=== PATIENT | male | born 1965 | race Caucasian/White ===

== ENCOUNTER → 2018-02-03 11:24 | Outpatient (CLI) | payer OTHER, SELFPAY ==
[2018-02-03 13:56] LABS: Basophils # 0.1 K/mm3 (0-0.2); Basophils % 0.4 % (0.1-2.0); Eosinophils # 0.1 K/mm3 (0.0-0.4); Eosinophils % 0.7 % (0.1-12.0); Hematocrit 49.2 % (42.0-52.0); Hemoglobin 16.1 g/dL (14.1-18.0); Lymphocytes # 1.6 K/mm3 (0.7-4.5); Lymphocytes % 14.3 K/mm3 (10-50); Mean Corpuscular HGB Conc 32.8 g/dL (31.8-35.4); Mean Corpuscular Hemoglobin 27.6 pg (27.0-31.2); Mean Corpuscular Volume 84.1 fl (80-94); Mean Platelet Volume 8.5 fl (7.4-10.4); Monocytes # 0.6 K/mm3 (0.1-1.0); Monocytes % 5.3 % (1.7-9.3); Neutrophils % 79.3 % (37.0-80.0); Platelet Count 337 K/mm3 (142-424); Red Blood Count 5.85 M/mm3 (4.60-6.20); Red Cell Distribution Width 14.6 % (11.5-17.5); White Blood Count 11.4 K/mm3 (4.8-10.8)
[2018-02-03 14:51] LABS: Alanine Aminotransferase 18 U/L (12-78); Albumin Level 3.6 gm/dL (3.4-5.0); Albumin/Globulin Ratio 1.1 (1.1-1.8); Alkaline Phosphatase 74 U/L (46-116); Amylase 53 U/L (25-125); Anion Gap 13.6 mEq/L (5-15); Aspartate Amino Transferase 5 U/L (15-37); Bilirubin,Total 0.8 mg/dL (0.2-1.0); Blood Urea Nitrogen 16 mg/dL (7-18); Calcium 9.6 mg/dL (8.5-10.1); Carbon Dioxide 28 mmol/L (21.0-32.0); Chloride 105 mmol/L (98-107); Chol/HDL Ratio 5.4 (1-3.5); Cholesterol 173 mg/dL (140-200); Creatinine,Serum 1.55 mg/dL (0.70-1.30); Estimated Glomerular Filt Rate 48 ml/min (>60); GFR (African American) 57 ML/MIN (>60); Globulin 3.2 gm/dl (1.3-3.2); Glucose 94 mg/dL (74-106); HDL Cholesterol 32 mg/dL (27-67); LDL Cholesterol 112 mg/dL (0-130); Lipase 101 u/L (73-393); Potassium 4.6 mmoL/L (3.5-5.1); Sodium 142 mmol/L (136-145); Total Protein,Serum 6.8 gm/dL (6.4-8.2); Triglycerides 143 mg/dL (30-200); VLDL Cholesterol 29 mg/dL (0-40)
== END ==
LOC: LAB 11:28 → LAB.CARL 11:59
PROVIDERS: PCP Internal Medicine Adolescent Medicine; Visit Provider Internal Medicine Adolescent Medicine
DX: E78.5 Hyperlipidemia, unspecified (principal); K92.1 Melena
CPT/HCPCS: 36415; 80053; 80061; 82150; 83690; 85025

== ENCOUNTER → 2020-12-14 09:13 | Outpatient (CLI) | payer OTHER, SELFPAY ==
--- NOTE | 2020-12-14 09:22 | XR_ITS ---
PROCEDURE: XR ANKLE WT BEARING LT MIN 3V CLINICAL INDICATION: pain COMPARISON: CR ANKR3 ANKLE-RT-3 VIEWS from 07/18/2015 CR ANKL3 ANKLE-LT-3 VIEWS from 07/18/2015 FINDINGS: Severe degenerative changes of the ankle joint, worse in the tibiotalar joint. There is evidence of varus tilt of the talus with evidence of flattening of the talar dome, subchondral sclerosis and extensive heterotopic ossification. There is subluxation of the tibiotalar joint. Degenerative changes of the distal tibial fibular joint noted. Soft tissue swelling adjacent to the ankle joint. Bone density is normal. Achilles tendon enthesopathy and calcaneal spur are noted. IMPRESSION: Severe degenerative changes of the ankle joint, worse in the tibiotalar joint. No acute fractures or dislocations. Dictated by: Pascale Mendoza 12/14/2020 12:48 Pascale Mendoza in [facility] 12/14/2020 12:48
--- NOTE | 2020-12-14 09:22 | XR_ITS ---
PROCEDURE: XR FOOT WT BEARING LT 3V CLINICAL INDICATION: pain COMPARISON: No exams were available for comparison FINDINGS: Mild osteopenia. No acute fractures or dislocations. Subluxation with degenerative changes of the tibiotalar joint are better visualized on the x-ray of the ankle joint. Extensive heterotopic ossification noted adjacent to the tibiotalar joint. Calcaneal spur is noted. No other soft tissue abnormality is noted. IMPRESSION: Calcaneal spur. Dictated by: Pascale Mendoza 12/14/2020 10:59 Pascale Mendoza in [facility] 12/14/2020 10:59
--- NOTE | 2020-12-14 09:22 | XR_ITS ---
PROCEDURE: XR FOOT WT BEARING RT 3V CLINICAL INDICATION: pain COMPARISON: No exams were available for comparison FINDINGS: Severe degenerative changes of the tibiotalar joint with sclerosis and flattening of the talar dome is noted, better characterized on the ankle radiograph of the same date. There is varus deformity of the 2nd, 3rd and 4th MTP joints. Degenerative changes of the 1st MTP joint is noted. No acute fractures or dislocations. No significant erosive changes. Mild generalized osteopenia is noted. IMPRESSION: Degenerative changes as described above. Dictated by: Pascale Mendoza 12/14/2020 12:46 Pascale Mendoza in [facility] 12/14/2020 12:46
--- NOTE | 2020-12-14 09:22 | XR_ITS ---
PROCEDURE: XR ANKLE WT BEARING RT MIN 3V CLINICAL INDICATION: pain COMPARISON: CR ANKR3 ANKLE-RT-3 VIEWS from 07/18/2015 CR ANKL3 ANKLE-LT-3 VIEWS from 07/18/2015 FINDINGS: Severe degenerative changes of the right ankle joint with the disruption of the ankle mortise, varus tilt, subchondral cystic changes and heterotopic ossification, worse compared to the prior study. Subluxation of the tibiotalar joint is noted. Widening of the lateral aspect of the tibiotalar joint is again noted, no interval change. Multiple osteophytes are noted in the tibiotalar joint. No acute fractures. No significant soft tissue abnormality is noted. IMPRESSION: Severe degenerative changes of the right ankle joint, worse compared to the prior study of July 18, 2015. No acute fractures. Dictated by: Pascale Mendoza 12/14/2020 10:57 Pascale Mendoza in [facility] 12/14/2020 10:57
== END ==
PROVIDERS: PCP Nurse Practitioner Family; Visit Provider Podiatrist
DX: M25.572 Pain in left ankle and joints of left foot (principal); M79.672 Pain in left foot; M25.571 Pain in right ankle and joints of right foot; M79.671 Pain in right foot
CPT/HCPCS: 73610; 73630

== ENCOUNTER → 2021-02-16 12:10 | Outpatient (CLI) | payer OTHER, SELFPAY ==
[2021-02-16 12:31] LABS: Basophils % 0.5 % (0.1-2.0); Eosinophils # 0.1 K/mm3 (0.0-0.4); Eosinophils % 1.2 % (0.1-12.0); Hematocrit 48.4 % (42.0-52.0); Hemoglobin 15.9 g/dL (14.1-18.0); Lymphocytes # 1.3 K/mm3 (0.7-4.5); Lymphocytes % 18.1 % (10-50); Mean Corpuscular HGB Conc 32.8 g/dL (31.8-35.4); Mean Corpuscular Hemoglobin 29.4 pg (27.0-31.2); Mean Corpuscular Volume 89.7 fl (80-94); Mean Platelet Volume 8.6 fl (7.4-10.4); Monocytes # 0.4 K/mm3 (0.1-1.0); Monocytes % 5.3 % (1.7-9.3); Neutrophils # 5.1 K/mm3 (1.8-7.8); Neutrophils % 74.8 % (37.0-80.0); Platelet Count 268 K/mm3 (142-424); Red Cell Distribution Width 14.3 % (11.5-17.5); White Blood Count 6.9 K/mm3 (4.8-10.8)
[2021-02-16 12:40] LABS: Alanine Aminotransferase 15 U/L (12-78); Albumin Level 3.9 g/dl (3.5-5.0); Albumin/Globulin Ratio 1.3 (1.1-1.8); Alkaline Phosphatase 60 U/L (38-126); Anion Gap 14.2 mEq/L (5-15); Aspartate Amino Transferase 24 U/L (17-59); Bilirubin,Total 0.8 mg/dl (0.2-1.3); Blood Urea Nitrogen 16 mg/dl (9-20); Calcium 9.6 mg/dl (8.4-10.2); Carbon Dioxide 25 mmol/L (22.0-30.0); Chloride 105 mmol/L (98-107); Estimated Glomerular Filt Rate 70 ml/min (>60); GFR (African American) 84 ML/MIN (>60); Globulin 2.9 g/dL (1.3-3.2); Glucose 105 mg/dl (74-100); Potassium 4.2 mmoL/L (3.5-5.1); Sodium 140 mmol/L (136-145); Total Protein,Serum 6.8 g/dl (6.3-8.2)
--- NOTE | 2021-02-16 12:40 | XR_ITS ---
PROCEDURE: XR DEXA AXIAL SKELETON CLINICAL HISTORY: surgical planning COMPARISON: No exams were available for comparison FINDINGS: The right hip BMD is 0.799 with a T-score of -1.0. The left hip BMD is 1.022 with a T-score of -0.1. The lumbar spine BMD is 1.234 with a T-score of 1.3. IMPRESSION: This patient is considered normal according to the World Health Organization criteria. Fracture risk is low. Based on these results a follow-up exam is recommended in 2 year. Dictated by: Patrick Madrid MD 02/16/2021 13:44 Patrick Madrid MD in [facility] 02/16/2021 13:44
[2021-02-16 12:44] LABS: Hemoglobin A1C 5.4 % (4.0-6.0)
[2021-02-16 12:45] LABS: C-Reactive Protein 14.7 mg/L (0-4)
[2021-02-16 13:03] LABS: Erythrocyte Sedimentation Rate 9 mm/hr (0-20)
--- NOTE | 2021-02-16 13:05 | MR_ITS ---
PROCEDURE INFORMATION: Exam: MR Right Lower Extremity Joint Without and With Contrast; Ankle Exam date and time: 02/16/2021 1:05 PM Age: 55 years old Clinical indication: Pain; Ankle; Right; Additional info: Pain. Entire ankle pain with swelling xyrs, no injury or trauma. Foot turns out. 30ml prohance given. 17ml lot: [id number] exp: Nov 2022 13ml lot: [id number] exp: Jul 2022 prior x-ray 12-14-20 bun: 16 cre: 1.10 gfr: 70 TECHNIQUE: Imaging protocol: MR of the Right lower extremity without and with contrast. Exam focused on the ankle. Contrast material: PROHANCE; Contrast volume: 30 ml; Contrast route: IV; COMPARISON: CR XR ANKLE WT BEARING RT MIN 3V 12/14/2020 9:25 AM FINDINGS: Bones and cartilage: Joint spaces: Severe ankle joint osteoarthrosis with cartilage denudation (most severe medially). Large ankle joint line osteophytes, with scattered foci of subchondral marrow edema and subchondral cysts. There is varus alignment of the ankle joint. A few mineralized intra-articular bodies are present within posterior and lateral portions of the ankle joint. There is severe osteoarthrosis of the middle subtalar joint with cartilage denudation and associated joint effusion, as well as subchondral marrow edema and cysts. Mild degenerative change of the posterior subtalar joint. Mineralized bodies are present within the posterior subtalar joint, possibly via communication with the ankle joint. There are scattered mild degenerative changes of the midfoot, with small foci of subchondral marrow edema. LIGAMENTS: Distal tibiofibular syndesmosis: There is thickening of the distal tibiofibular syndesmosis, including the anterior and posterior tibiofibular ligaments. Anterior talofibular ligament: Chronic tear. Posterior talofibular ligament: Unremarkable. No tear. Calcaneofibular ligament: Chronic tear. Deltoid ligament complex: Unremarkable. No tear. TENDONS: Flexor tendons of foot: There is a moderate amount of fluid within flexor hallucis longus tendon sheath compatible with tenosynovitis. Tibialis posterior tendon: There is mild tibialis posterior tendinosis and tenosynovitis, without evidence of tendon tear. Peroneal tendons: Longitudinal split tear of the peroneus brevis extending from the lateral malleolus to the peroneal tubercle. There is peroneus longus tendinosis, with a short segment split tear involving the proximal inframalleolar portion. There is peroneal tenosynovitis. Extensor tendons of foot: Unremarkable as visualized. Tibialis anterior tendon: Unremarkable as visualized. Achilles tendon: Mild tendinosis. No tear. Tarsal canal (Sinus tarsi): There is fluid in the sinus tarsi bursa of Gruberi. There is abnormal edema and replacement of fat within the sinus tarsi, to suggest sinus tarsi syndrome. Tarsal tunnel: Unremarkable. Muscles: Mild fatty atrophy of the abductor digiti minimi muscle, perhaps an early Molina neuropathy. Soft tissues: Unremarkable. Plantar fascia: Plantar fascia is unremarkable. IMPRESSION: 1. Severe ankle joint osteoarthrosis with abnormal varus alignment, synovitis, small joint effusion, and intra-articular bodies. 2. Severe middle subtalar joint osteoarthrosis. 3. 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 4. Chronic tears of the anterior talofibular ligament and calcaneofibular ligament. 5. Longitudinal split tears of the peroneus brevis and longus. Peroneal tenosynovitis. 6. Moderate flexor hallucis longus tenosynovitis. 7. Mild tendinosis and tenosynovitis of the tibialis posterior. Mild Achilles tendinosis.
[2021-02-27 21:08] LABS: 1,25 Dihydroxy Vitamin D 31 pg/mL (.); 1,25-Dihydroxy, Vitamin D-2 <10 pg/mL (.); 1,25-Dihydroxy, Vitamin D-3 30 pg/mL (.)
== END ==
PROVIDERS: Visit Provider Podiatrist
DX: M25.371 Other instability, right ankle (principal); M85.80 Other specified disorders of bone density and structure, unspecified site; M85.89 Other specified disorders of bone density and structure, multiple sites; M19.071 Primary osteoarthritis, right ankle and foot; M19.072 Primary osteoarthritis, left ankle and foot
CPT/HCPCS: 36415; 73723; 77080; 80053; 82652; 83036; 85025; 85651; 86140; A9576

== ENCOUNTER → 2021-03-13 07:27 | Outpatient (CLI) | payer OTHER, SELFPAY ==
--- NOTE | 2021-03-13 | CT_ITS ---
PROCEDURE: CT ANKLE RT WO CON CLINICAL HISTORY: Pain, Pre-operative planning COMPARISON: CR XR FOOT WT BEARING LT 3V from 12/14/2020 TECHNIQUE: Axial images obtained with sagittal and coronal reformats. All CT scans at the facility use one or more dose reduction, viz: automated exposure control, ma/kV adjustment per patient size (including targeted exams where dose is matched to indication, i.e. head), or iterative reconstruction technique. FINDINGS: Preoperative planning performed. Images obtained from the knee through the foot. Osteoarthritis of the right knee with narrowing of the joint space. This is greater along the medial compartment. No fracture or dislocation of the tibia. No lytic or blastic change. There are osteoarthritic changes at the proximal tibiofibular joint with subchondral cystic changes and osteophyte formation. Patellofemoral osteoarthritic changes also noted. Osteoarthritic changes the tibial talar joint. There is mild inversion of the talus. There is severe narrowing of the joint space medially with osteophyte formation along the medial aspect of the talus. Subcortical cystic changes are present. Scattered calcific debris noted about the ankle joint. There is a prominent spur along the neck of the talus anteriorly. Numerous subchondral cysts are present at the distal tibia, talus, and distal fibula with hypertrophic changes of the fibula. Scattered calcifications are present in the periarticular region medially and laterally. Loose bodies are noted posterior to the distal tibia. Fluid is present around the flexor hallucis longus tendon. There is also a small amount of fluid at the talocalcaneal joint. There is generalized vascular calcification. No acute fracture or dislocation is evident. IMPRESSION: Extensive osteoarthritic changes of the ankle as described above with varus angulation of the ankle with numerous subcortical cysts and loose bodies. Osteoarthritis of the knee. Dictated by: Patrick Madrid MD 03/14/2021 10:44 Patrick Madrid MD in [facility] 03/14/2021 10:44
== END ==
PROVIDERS: PCP Nurse Practitioner Family; Visit Provider Podiatrist
DX: M19.071 Primary osteoarthritis, right ankle and foot (principal); M19.072 Primary osteoarthritis, left ankle and foot
CPT/HCPCS: 73700

== ENCOUNTER → 2021-04-02 09:50 | Outpatient (CLI) | payer OTHER, SELFPAY ==
--- NOTE | 2021-04-02 10:09 | ECG_ITS ---
APPROVED REPORT Exam: Resting ECG HR:62 bpm ECG Measurements Heart Rate 62 AXES VT 160 P 24 QRSd 106 QRS 0 QT 408 T 20 QTc 414 Conclusion Normal sinus rhythm with sinus arrhythmia Normal ECG Electronically signed by : Ean Marks MD 04/02/2021 19:43:27
[2021-04-02 10:16] LABS: Basophils # 0.1 K/mm3 (0-0.2); Basophils % 0.8 % (0.1-2.0); Eosinophils # 0.1 K/mm3 (0.0-0.4); Eosinophils % 1.5 % (0.1-12.0); Hematocrit 51.7 % (42.0-52.0); Hemoglobin 16.8 g/dL (14.1-18.0); Lymphocytes # 1.3 K/mm3 (0.7-4.5); Lymphocytes % 16.1 % (10-50); Mean Corpuscular HGB Conc 32.5 g/dL (31.8-35.4); Mean Corpuscular Hemoglobin 28.9 pg (27.0-31.2); Mean Corpuscular Volume 88.8 fl (80-94); Mean Platelet Volume 9.2 fl (7.4-10.4); Monocytes # 0.3 K/mm3 (0.1-1.0); Monocytes % 3.7 % (1.7-9.3); Neutrophils # 6.4 K/mm3 (1.8-7.8); Neutrophils % 77.8 % (37.0-80.0); Platelet Count 307 K/mm3 (142-424); Red Blood Count 5.83 M/mm3 (4.60-6.20); Red Cell Distribution Width 14.9 % (11.5-17.5); White Blood Count 8.3 K/mm3 (4.8-10.8)
[2021-04-02 10:45] LABS: Erythrocyte Sedimentation Rate 1 mm/hr (0-20)
[2021-04-02 11:55] LABS: Alanine Aminotransferase 16 U/L (12-78); Albumin/Globulin Ratio 1.5 (1.1-1.8); Alkaline Phosphatase 75 U/L (38-126); Anion Gap 10.7 mEq/L (5-15); Aspartate Amino Transferase 18 U/L (17-59); Bilirubin,Total 0.6 mg/dl (0.2-1.3); Blood Urea Nitrogen 15 mg/dl (9-20); Calcium 9.5 mg/dl (8.4-10.2); Carbon Dioxide 29 mmol/L (22.0-30.0); Chloride 105 mmol/L (98-107); Estimated Glomerular Filt Rate 78 ml/min (>60); GFR (African American) 94 ML/MIN (>60); Globulin 2.6 g/dL (1.3-3.2); Glucose 106 mg/dl (74-100); Potassium 4.7 mmoL/L (3.5-5.1); Sodium 140 mmol/L (136-145); Total Protein,Serum 6.6 g/dl (6.3-8.2)
[2021-04-02 12:01] LABS: 25-OH Vitamin D, Total 30.5 ng/mL (30-100)
== END ==
PROVIDERS: Visit Provider Podiatrist
DX: Z01.818 Encounter for other preprocedural examination (principal); Z11.52 Encounter for screening for COVID-19; M19.071 Primary osteoarthritis, right ankle and foot; E66.9 Obesity, unspecified; Z68.42 Body mass index [BMI] 45.0-49.9, adult
CPT/HCPCS: 36415; 80053; 82306; 85025; 85651; 86140; 93005; C9803; U0003; U0005

== ENCOUNTER 2021-04-04 07:20 | Observation (INO) | payer OTHER, SELFPAY ==
[2021-03-30 12:50] VITALS: BMI 42.5
[2021-04-04] VITALS (21 sets, daily range): BP systolic 97–141; BP diastolic 43–92; PULSE 67–108; RESP 14–18; TEMP 36.2–43; O2SAT 89–97; BMI 45.4
--- NOTE | 2021-04-04 06:31 | XR_ITS ---
PROCEDURE: XR CHEST PORTABLE CLINICAL HISTORY: PREOP COMPARISON: No exams were available for comparison FINDINGS: Normal heart size. No evidence of CHF. Lungs are clear. No acute bony anomalies. IMPRESSION: No acute findings. Dictated by: Patrick Madrid MD 04/04/2021 07:03 Patrick Madrid MD in [facility] 04/04/2021 07:03
[2021-04-04 06:32] LABS: Coronavirus 19, PCR Not Detected (NotDetected); Influenza A, PCR Not Detected (NotDetected); Influenza B, PCR Not Detected (NotDetected)
--- NOTE | 2021-04-04 07:37 | HMH.ORTHHP ---
*Admission Date: 04/04/21 *Reason for consult:: Post op right ankle *History of present illness: Patient is a 55-year-old male who presents for admission for postoperative pain management, physical therapy evaluation and medical management after right ankle reconstruction. PCP Dr. Hammer will be consulted for medical management. Patient's has CPAP for you starting tonight. Discussed DVT prophylaxis risk. [facility] History I have reviewed the patient's past medical history: Yes Medical History: Reports:: Gastroesophageal Reflux Disease(GERD), Hypertension, Lung Disease Denies:: Cancer, Diabetes Mellitus Type 1, Diabetes Mellitus Type 2, Internal Pacemaker, MRSA, Seizures *Have you ever received a pneumonia vaccine?: No *Have you received a flu vaccine this season?: No Other Medical History: Denies: Blood Transfusion Reaction Laterality Cases: Right: Arthroscopy Shoulder Other Surgeries: Yes: Colonoscopy, Hernia Repair, Other. No: Pacemaker Amputation: No Fractures: No - *Social History Last grade of school completed: High school graduate Smoking Status: Never smoker Alcohol Intake: current Alcohol Intake Frequency:: holidays/special occasions only Substance Use Type: denies use *Occupational Status:: employed Housing: apartment Household Members: spouse, family *Travel in the last 8 weeks: None Family Hx:: Coronary Artery Disease, Heart Attack, Stroke Review of Systems - Review of Systems Review of systems:: pertinent systems reviewed and negative unless documented below - Constitutional Denies chills - Eyes Denies blind spots - ENT Denies abnormal hearing - *Cardiovascular Denies chest pain - *Respiratory Denies change in phlegm color - *Gastrointestinal Denies abdominal pain - *Genitourinary Denies difficulty urinating - *Musculoskeletal Reports joint pain, Reports joint swelling (Right ankle) - Integumentary/Breasts Denies wounds - *Neurologic Denies behavioral changes - Psychiatric Denies abnormal sleep pattern - Endocrine Denies cold intolerance - Hematologic/Lymphatic Denies easy bruising Meds Home Medications Medication Instructions Recorded Confirmed Type diclofenac 75 mg-misoprostol 200 1 tab PO DAILY tab 06/10/19 03/19/21 History mcg tablet,immediate,delayed release carvedilol 25 mg tablet 25 mg PO BID #180 tab 06/15/20 03/19/21 Rx lansoprazole 15 mg capsule,delayed 15 mg PO DAILY 12/14/20 03/19/21 History release meloxicam 7.5 mg tablet 7.5 mg PO DAILY #30 tab 12/14/20 03/19/21 Rx Amlodipine Besylate [Amlodipine 10 mg PO DAILY 04/04/21 History 10mg Tab] Ergocalciferol (Vitamin D2) 50,000 unit PO QWEEK 04/04/21 History [Drisdol] gemfibroziL [Gemfibrozil] See Rx Instructions .ROUTE .COMPLEX 04/04/21 History hydroCHLOROthiazide [HCTZ 25mg 25 mg PO DAILY 04/04/21 History tab] lisinopriL [Lisinopril 40mg Tablet] 40 mg PO DAILY 04/04/21 History Allergies Allergy/AdvReac Type Severity Reaction Status Date / Time No Known Drug Allergies Allergy Unknown Verified 03/19/21 15:06 Exam Vital signs and Labs for Last 24 Hours: Temp Pulse Resp BP Pulse Ox 97.2 F L 67 18 136/92 H 94 L 04/04/21 06:29 04/04/21 06:29 04/04/21 06:29 04/04/21 06:29 04/04/21 06:29 Laboratory Results - last 24 hr 04/04/21 06:24: SARS-CoV-2 (PCR) Not detected, Influenza A Untype (PCR) Not detected, Influenza Type B (PCR) Not detected - Constitutional no acute distress - *Routine HEENT Exam Head: Present: normocephalic Eye: Present: EOMI, PERRL ENT: Present: mucous membranes moist - *Routine Neck Exam Present: supple. Absent: lymphadenopathy - *Routine Respiratory Exam Present: CTA bilaterally - *Routine Cardiovascular Exam Present: RRR - *Routine Abdominal Exam Present: soft, normoactive bowel sounds. Absent: tenderness - *Routine Rectal Exam Rectal:: deferred - *Routine Genitalia Exam Genitalia:: deferred - *Rou
--- NOTE | 2021-04-04 08:05 | HMH.ANESCL ---
[facility] Anesthesia Checklist - Patient Identification Patient Identification: Arm Band, Verbal (Name & ) - Structural Data Admitted From: Home Planned Operative Procedure/s: Right Ankle fusion Consent for Planned Operative Procedure(s) Verified: Yes Verified Documents: Surgical Consent - NPO Status Verified Time NPO: 00:00 - Additional verifications Anesthesia Reactions: Yes (drowsiness) Hx Blood Transfusions: No Blood Transfusion Reaction: No - Cardiovascular Assessment Heart Sounds: S1 & S2 - Airway Assessment C-Spine Mobility Assessed: Yes TMJ Mobility Assessed: Yes Dentition: Good Dentition - Neurological Assessment Level of Consciousness: Awake, Alert, Appropriate - Anesthesia Plan Anesthesia Risk discussed: Yes ASA Class: III Anesthesia Type: General w/block [facility] History I have reviewed the patient's past medical history: Yes Medical History: Reports:: Gastroesophageal Reflux Disease(GERD), Hypertension, Lung Disease Denies:: Cancer, Diabetes Mellitus Type 1, Diabetes Mellitus Type 2, Internal Pacemaker, MRSA, Seizures *Have you ever received a pneumonia vaccine?: No *Have you received a flu vaccine this season?: No Other Medical History: Denies: Blood Transfusion Reaction Anesthesia experience/problems:: No issues Laterality Cases: Right: Arthroscopy Shoulder Other Surgeries: Yes: Colonoscopy, Hernia Repair, Other. No: Pacemaker Amputation: No Fractures: No - *Social History Last grade of school completed: High school graduate Smoking Status: Never smoker Alcohol Intake: current Alcohol Intake Frequency:: holidays/special occasions only Substance Use Type: denies use *Occupational Status:: employed Housing: apartment Household Members: spouse, family *Travel in the last 8 weeks: None Family Hx:: Coronary Artery Disease, Heart Attack, Stroke
--- NOTE | 2021-04-04 08:55 | SUR.OPER ---
0815-family updated at this time
--- NOTE | 2021-04-04 11:06 | SUR.OPER ---
1100-family updated of pt's current status via yasir funes in pre-op.
--- NOTE | 2021-04-04 12:21 | XR_ITS ---
PROCEDURE: XR ANKLE RT 2V CLINICAL INDICATION: OR COMPARISON: CR ANKR3 ANKLE-RT-3 VIEWS from 07/18/2015 CR ANKL3 ANKLE-LT-3 VIEWS from 07/18/2015 CR XR ANKLE WT BEARING LT MIN 3V from 12/14/2020 CR XR ANKLE WT BEARING RT MIN 3V from 12/14/2020 FINDINGS: Fluoroscopy time: 2.51 minutes. AP and lateral views obtained with the C-arm demonstrates interval placement of anterior bone plate and multiple cortical screws with fusion of the tibial talar joint. Good alignment Other findings:None. IMPRESSION: Good alignment status post ankle joint fusion with fluoroscopic assistance Dictated by: Patrick Madrid MD 04/04/2021 13:40 Patrick Madrid MD in [facility] 04/04/2021 13:40
--- NOTE | 2021-04-04 12:25 | SUR.OPER ---
1225-updated at this time per YORDAN Shukla
--- NOTE | 2021-04-04 13:03 | XR_ITS ---
PROCEDURE: XR FOOT RT MIN 3V XR R ankle right three views X are calcaneus right two views CLINICAL INDICATION: MD order Follow-up fixation COMPARISON: CR ANKR3 ANKLE-RT-3 VIEWS from 07/18/2015 CR XR FOOT WT BEARING LT 3V from 12/14/2020 CR XR FOOT WT BEARING RT 3V from 12/14/[address] ANKLE RT WO CON from 03/13/2021 CR XR CALCANEUS RT MIN 2V from 04/04/2021 CR XR ANKLE RT 2V from 04/04/2021 CR XR ANKLE RT MIN 3V from 04/04/2021 FINDINGS: Exams are obtained through a cast. There has been interval placement of an anterior bone plate at the distal tibia with curved component along the superior aspect of the talus situated with multiple screws. Three distal screws are present extending from the distal tibia into the talus. There does appear to be good alignment. Prominent extra ossicle calcification noted at the distal fibula as before. No acute fracture or dislocation. IMPRESSION: Status post bone plate fusion of the tibial talar joint with good alignment. Dictated by: Patrick Madrid MD 04/04/2021 14:10 Patrick Madrid MD in [facility] 04/04/2021 14:10
--- NOTE | 2021-04-04 13:21 | P.PN_ITS ---
[facility] Anesthesia Record Part I Intake, IV Amount: 1,300 Estimated blood loss (mL): 200 Urine output (mL): 300 Blood Pressure: 141/74 SaO2: 93 Pulse Rate: 97 Respiratory Rate: 18 Temperature: 97.9 F Patient is:: Drowsy Stable to PACU at:: 13:17
--- NOTE | 2021-04-04 13:39 | SUR.PHASEI ---
1320- frida, radiology in to take Xrays of the foot, ankle, and calcaneous at this time.
--- NOTE | 2021-04-04 13:41 | HMH.OPNOTE ---
Date of procedure: 04/04/21 Pre-op Diagnosis:: 1. Right ankle osteoarthritis 2. Right ankle impingement 3. Tear of right peroneal tendon x2 4. Sinus tarsi syndrome of right ankle 5. Right ankle instability 6. Right peroneal tendonitis 7. Acquired equinus deformity 8. Synovitis of right ankle 9. History right ankle fracture, fracture fragment 10. MARIE 11. BMI 40.0-44.9, adult Post-op Diagnosis:: Same Procedure performed:: 1. Right ankle arthrodesis 2. Right peroneus brevis debridement and repair 3. Right peroneal longus debridement and repair 4. Right subtalar joint synovectomy 5. Right ankle synovectomy 6. Right percutaneus tendo achilles lengthening 7. Excision/removal of fibula fracture 8. Right fibula osteotomy 9. Application of graft 10. Application of posterior splint Surgeon:: Cari Castro DPM Cmm Operator(s):: Geetha Camejo Anesthesia: GETA, regional (Right popliteal, saph nerve block) Estimated blood loss (mL): 30 Clinical Note:: Pre-op: Patient is a 55M, non-DM, non-smoker who presents with right ankle pain and instability. The patient has tried modification of shoe gear, taping, strapping, inserts, ice, elevation, and NSAIDs. He has also tried ankle bracing, injections and physical therapy. After a long discussion with patient in regards to the conservative versus surgical treatment for the arthritic deformity, the patient has elected to proceed with surgery because they have failed conservative treatment and continue to have pain and worsening symptoms affecting daily activities. Due to his weight, will proceed with ankle fusion > TAR. The patient has been instructed on the planned procedure, all risk versus benefits of the procedure discussed. These include but are not limited to: bleeding, infection, nerve and blood vessel damage, need for further surgery, delay in healing of soft tissue or bone, failure of bones to heal, non-union, mal-union, failure of the implant, prolonged pain and recovery, CRPS/RSD, DVT/PE and anesthetic complications including . No guarantees were given. All questions fully answered. The patient verbalized understanding and agreed to proceed with surgery. Written consent was obtained. Necessary labs and pre-op testing ordered: CBC, CMP, CXR, EKG, esr, crp, vit D, covid. Medical clearance-Dr. Marks and cardiac clearance by Dr. Rai. Will need Rx for [place] 7.5mg, Zofran 4mg, Motrin 800mg, Flexeril 5mg, Toradol 10mg, gabapentin 100mg TID, Lovenox (morbid obesity, father had DVT/PE). Operative findings:: Right ankle had significant osteoarthritic changes. There were subchondral bone cysts and osteophytes noted throughout the ankle. There was inversion of the talus noted. Narrowing of the joint space medially. Loose bodies and fracture fragments noted to the lateral ankle and underneath the distal fibula. Scattered calcifications noted. Loose body also noted to the posterior distal tibia. No signs of infection. Numerous subchondral cysts are present at the distal tibia, talus, and distal fibula with hypertrophic changes of the fibula. Small amount of fluid at the talocalcaneal joint, subtalar joint synovitis. Peroneal tendon tears noted with hypertrophy of the tendons under the distal fibula consistent with prior tear and rupture. Case took 1.5 hours longer than normal due to patient's body habitus and scar tissue. All aspects of care is complicated by history of ankle fracture, fibrotic scar tissue, numerous loose bodies, subchondral cyst, poor bone quality, lung disease and morbid obesity. Operative note:: On this date and time patient was deemed an appropriate surgical candidate. Anesthesia performed a pre-op regional popliteal nerve block. With informed consent signed, patient was taken to the operating theater. The patient positioned supine. General anesthesia induced. Tourniquet was applied to the right thigh at 250 mmHg. IV Ancef 2g given. Right lower extremity was prepped and draped in a normal sterile
--- NOTE | 2021-04-04 13:44 | HMH.PHAVTE ---
[facility] Pharmacy VTE Monitoring - Patient Demographics Admission date: 04/04/21 Report Date: 04/04/21 Time: 13:44 Allergies/Adverse Reactions: Patient Allergies No Known Drug Allergies Allergy (Unknown, Verified 03/19/21 15:06) Height: 1.91 m Weight: 154.221 kg Patient Problems: Current Active Problems Primary osteoarthritis, right ankle and foot (Acute) Status post ankle arthrodesis (Acute) Pain in right ankle and joints of right foot (Acute) Obstructive sleep apnea syndrome (Chronic) Morbid obesity (Chronic) Hypertensive heart disease (Chronic) - VTE Risk Clinical Trial Participant: No - Prophylaxis VTE Prophylaxis Ordered?: Yes Types of VTE Prophylaxis: IPCS Knee High (POST OP), Pharmacological Pharmacologic Type: Enoxaparin (POST OP)
--- NOTE | 2021-04-04 13:51 | PC.NURSE ---
pt arrived to floor via stretcher
[2021-04-04 13:53] LABS: Microscopic,Cath URINE MICROSCOPIC (MICROSCOPIC)
[2021-04-04 13:59] LABS: Appearance,Urine/Cath CLEAR (Clear); Bilirubin,Cath Negative (Negative); Blood, Urine/Cath Negative (Negative); Color,Urine/Cath YELLOW (Yellow); Glucose,Urine/Cath (UA) Negative (Negative); Ketones,Urine/Cath Negative (Negative); Leukocyte Esterase,Cath Negative (Negative); Nitrate,Cath Negative (Negative); Protein,Urine/Cath Negative (Negative); Specific Gravity, Urine/Cath 1.025 (1.005-1.030); Urobilinogen,Cath 0.2 EU/dl (0.2)
--- NOTE | 2021-04-04 13:59 | SUR.PHASEI ---
1346- detailed report called to yasir read on [facility] floor by yasir jay at this time. 1348- pt left in stable condition with yasir read on [facility] by yasir vogt and yasir amaya
--- NOTE | 2021-04-04 16:57 | HMH.DCSUM ---
General - General Admission date:: 04/04/21 Discharge date: 04/05/21 HPI HPI: Patient is a 55-year-old male who presents after admission for postoperative pain management, physical therapy evaluation and medical management after right ankle reconstruction. PCP Dr. Marks consulted for medical management. Continue CPAP. Discussed DVT prophylaxis risk. Hospital Course Hospital Course: Date of surgery 04/04/2021, S/p right ankle reconstruction: Admitted for 23 hour observation. Had a uneventful postoperative course. He did get up last night with a walker to use the restroom. Noticed bleeding from the dressing. The postop dressing and posterior splint was removed in total. Incision sites were checked. Sutures to the Achilles and anterior ankle. Dermabond pernio dressing to the lateral ankle incision. No signs of active bleeding, hematoma or wound dehiscence noted. *A new dressing and posterior U splint applied to RLE. Uses a CPAP. Patient is to maintain dressing clean dry and intact. Polar pack behind the right knee and elevate on two pillows. Non weight bearing to the right lower extremity with DME assistance (recommend rolling knee scooter). PT in am for gait training: evaluate for crutches, walker, RKS. Incentive spirometer q1h. [facility] Will need Rx for Percocet 7.5/325, Flexeril, Keflex 500mg, Lovenox, Zofran and Motrin 800mg. Plan for discharge after PT session. Objective Vital signs: Temp Pulse Resp BP Pulse Ox 97.9 F 82 14 98/56 L 96 04/04/21 15:10 04/04/21 15:10 04/04/21 15:10 04/04/21 15:10 04/04/21 15:10 no acute distress, obese - *Routine HEENT Exam Head: Present: normocephalic Eye: Present: EOMI, PERRL ENT: Present: mucous membranes moist - *Routine Neck Exam Present: supple - *Routine Respiratory Exam Present: CTA bilaterally - *Routine Cardiovascular Exam Present: RRR - *Routine Abdominal Exam Present: soft, normoactive bowel sounds. Absent: tenderness - *Routine Rectal Exam Patient deferred: visual exam - *Routine Exam Patient deferred: penile exam - *Routine Extremities Exam Present: edema, pulses intact, normal capillary refill. Absent: cyanosis, clubbing - *Routine Skin Exam Present: warm. Absent: rash - *Routine Neurological Exam Present: alert, oriented X3, moving all extremities - Detailed Eye Exam Eyelids: Bilateral normal inspection - Detailed Lower Extremity Exam Leg image: 1 - RLE dressing and splint clean dry and intact. CFT wnl. Motor function, light touch sensation delayed secondary to nerve block. No calf or thigh pain noted b/l. Comments: Splint had some strike thru noted. Dressing and splint removed to check the incisions. Incision sites look stable. No active bleeding, hematoma, wound dehiscence or signs of infection noted. Sutures intact to anterior ankle and Achilles. Dermabond Prineo intact to lateral incision. Results Completed studies during hospitalization [Text1]: X-rays right foot, ankle, calcaneal axial views. Labs on day of discharge: Labs from last 24 hours 04/04/21 04/04/21 07:45 06:24 Urine Color Yellow Urine Appearance Clear Urine pH 6.0 Ur Specific Mccaskill 1.025 Urine Protein Negative Urine Glucose (UA) Negative Urine Ketones Negative Urine Blood Negative Urine Nitrate Negative Urine Bilirubin Negative Urine Urobilinogen 0.2 Ur Leukocyte Esterase Negative Urine RBC None Urine WBC None Ur Squamous Epith Cells None Urine Bacteria None SARS-CoV-2 (PCR) Not detected Influenza A Untype (PCR) Not detected Influenza Type B (PCR) Not detected DS: Diagnosis - Discharge Diagnosis (1) Primary osteoarthritis, right ankle and foot Status: Acute (2) Status post ankle arthrodesis Status: Acute (3) Pain in right ankle and joints of right foot Status: Acute (4)
--- NOTE | 2021-04-04 18:08 | HMH.ANESII ---
[facility] Anesthesia Record Part II Discharge Time: 13:47 Destination: 2nd floor PACU nurse assessment reviewed?: Yes Patient Condition:: Good Anesthesia Complications:: None none Swallowing reflex intact?: Yes Cyanosis?: No Blood Pressure: 126/75 Pulse Rate: 79 Temperature: 98.1 F Mental Status: Alert & Oriented Pain level:: 0 Nausea and/or vomitting:: None Intake, IV Amount: 0
--- NOTE | 2021-04-04 19:13 | PC.NURSE ---
Pt up to side of bed, NWB w/ use of walker. Pt did well requiring minimal assistance. Pt notes that pain is tolerable, rating 3/10 aching .
[2021-04-05] VITALS: BP 128/88; PULSE 89; RESP 17; TEMP 36.7; O2SAT 98
[2021-04-05 04:00] VITALS: BP 122/82; PULSE 65; RESP 20; TEMP 36.8; O2SAT 96
[2021-04-05 05:05] VITALS: BMI 46.2
--- NOTE | 2021-04-05 05:20 | PC.NURSE ---
NO ACUTE CHANGES. PT HAS RESTED WELL THIS SHIFT. HAS DENIED ANY DISCOMFORT THIS SHIFT. DSG TO RLE C/D/I. VSS. MEDICATIONS ADMINISTERED PER MAR. NO CONCERNS AT THIS TIME. WILL CONTINUE TO MONITOR.
[2021-04-05 06:13] LABS: Basophils % 0.4 % (0.1-2.0); Eosinophils % 0.3 % (0.1-12.0); Hematocrit 41.6 % (42.0-52.0); Hemoglobin 13.9 g/dL (14.1-18.0); Lymphocytes # 1.1 K/mm3 (0.7-4.5); Lymphocytes % 13.3 % (10-50); Mean Corpuscular HGB Conc 33.5 g/dL (31.8-35.4); Mean Corpuscular Hemoglobin 29.1 pg (27.0-31.2); Mean Corpuscular Volume 86.9 fl (80-94); Mean Platelet Volume 9.2 fl (7.4-10.4); Monocytes # 0.5 K/mm3 (0.1-1.0); Monocytes % 6.2 % (1.7-9.3); Neutrophils # 6.6 K/mm3 (1.8-7.8); Neutrophils % 79.7 % (37.0-80.0); Platelet Count 266 K/mm3 (142-424); Red Blood Count 4.78 M/mm3 (4.60-6.20); Red Cell Distribution Width 14.8 % (11.5-17.5); White Blood Count 8.3 K/mm3 (4.8-10.8)
[2021-04-05 07:08] LABS: Alanine Aminotransferase 12 U/L (12-78); Albumin Level 3.1 g/dl (3.5-5.0); Albumin/Globulin Ratio 1.2 (1.1-1.8); Alkaline Phosphatase 49 U/L (38-126); Anion Gap 5.7 mEq/L (5-15); Aspartate Amino Transferase 15 U/L (17-59); Bilirubin,Total 0.9 mg/dl (0.2-1.3); Blood Urea Nitrogen 23 mg/dl (9-20); Calcium 8.9 mg/dl (8.4-10.2); Carbon Dioxide 29 mmol/L (22.0-30.0); Chloride 107 mmol/L (98-107); Creatinine Clearance Estimated 98 mL/min (50-200); Estimated Glomerular Filt Rate 78 ml/min (>60); GFR (African American) 94 ML/MIN (>60); Globulin 2.6 g/dL (1.3-3.2); Glucose 115 mg/dl (74-100); Potassium 3.7 mmoL/L (3.5-5.1); Sodium 138 mmol/L (136-145); Total Protein,Serum 5.7 g/dl (6.3-8.2)
[2021-04-05 07:32] VITALS: BP 135/87; PULSE 101; RESP 20; TEMP 36.6; O2SAT 97
--- NOTE | 2021-04-05 10:10 | SW/DCPLANNER ---
Addendum entered by Briseyda Lynch 04/05/21 11:21: Yaneli marroquin/ [facility] has stated that rolling walker will be delivered. Original Note: This patient will need a rolling walker order at time of discharge. Patient information/order will be faxed to [facility]: once order is reviewed I will follow up with Markie. Patient will discharge home today.
--- NOTE | 2021-04-05 10:18 | PC.NURSE ---
PT WILL NEED A ROLLING WALKER RATHER THAN A CANE DUE TO GAIT AND MOBILITY ISSUES.
--- NOTE | 2021-04-05 10:50 | HMH.PTEV ---
Physical Therapy Evaluation Rehab PT IP Evaluation Start: 04/04/21 13:34 Freq: ONCE Status: Active Protocol: Document 04/05/21 10:40 PWILLIAMS (Rec: 04/05/21 10:50 PWILLIAMS [id number]) Subjective/History History History This is the initial evaluation for Tej Lim. Pt is a 55 yo male post op R total ankle. - note done by Kenisha Rosenbaum, SPT Subjective Subjective Pt states he is doing well today. Pt states he is a [employer] and walks around a lot. Pt reports he has 3 steps into home but nothing inside. Pt states he lives with who is in good health. Rehab PT IP Eval Objective Appearance Patient Behavior Appropriate,Cooperative Patient Orientation Place,Name,Birthday,Year Difficulty following instructions none Speech Pattern Clear,Appropriate Ambulation Patient Able to Ambulate Yes Ambulation Observation Ambulation Distance (feet) 20 Ambulation Assistive Device Rolling Walker Ambulation Ability Independent Balance Ability to Arise Able, w/o using arms Sitting Balance Steady, safe Standing Balance Narrow stance w/o support Dynamic Sitting Balance Ability Normal Dynamic Standing Balance Ability Normal Transfers Bed Transfer Ability Independent Sit to Stand Bed Transfer Ability Independent Rehab PT IP prob,goals,plan Problems Date of Evaluation: 04/05/21 Rehab Potential Rehab Potential Good Equipment Needs Assistive Devices Rolling / Wheeled Walker Plan Duration Goals Met Discharge Plan PT Discharge Plan Pt is independent with AD and post op precautions. Due to goals met and upcoming d/c, pt does not need skilled IP therapy at this time. Pt was educated on ankle precautions once again. Pt agreed to use front wheeled walker as AD. Pt would beneoft from OP or home health skilled therapy. G -code Required No PHYSICIAN CERTIFICATION: I certify the specified therapy services for Tej Lim are required, authorized, and reviewed every 30 days.
== END 2021-04-05 14:30 | disposition home or self-care (01) ==
LOC: 2ND 07:21
PROVIDERS: Admitting Provider Podiatrist; PCP Internal Medicine Adolescent Medicine; Visit Provider Podiatrist
PROC: (CPT 27658; principal; 2021-04-04 07:30)
DX: M19.071 Primary osteoarthritis, right ankle and foot (principal); M19.171 Post-traumatic osteoarthritis, right ankle and foot; M66.361 Spontaneous rupture of flexor tendons, right lower leg; M25.371 Other instability, right ankle; M76.821 Posterior tibial tendinitis, right leg; M76.71 Peroneal tendinitis, right leg; M25.871 Other specified joint disorders, right ankle and foot; M85.89 Other specified disorders of bone density and structure, multiple sites; M25.571 Pain in right ankle and joints of right foot; M65.89 Other synovitis and tenosynovitis, multiple sites; E66.01 Morbid (severe) obesity due to excess calories; Z68.42 Body mass index [BMI] 45.0-49.9, adult; Z79.899 Other long term (current) drug therapy; Z20.822 Contact with and (suspected) exposure to COVID-19
CPT/HCPCS: 27658; 27870; 28725; 36415; 71045; 73600; 73610; 73630; 73650; 80053; 81001; 85025; C1713; C1734; C1762; C1776; C9803; G0378; J0330; J2405; J2710; Q4211; U0003; U0005

== ENCOUNTER → 2021-05-08 13:47 | Outpatient (CLI) | payer OTHER, SELFPAY ==
--- NOTE | 2021-05-08 13:50 | XR_ITS ---
PROCEDURE: XR ANKLE WT BEARING RT MIN 3V CLINICAL INDICATION: postop views COMPARISON: CR XR ANKLE WT BEARING LT MIN 3V from 12/14/2020 CR XR ANKLE WT BEARING RT MIN 3V from 12/14/2020 CR XR ANKLE RT 2V from 04/04/2021 CR XR ANKLE RT MIN 3V from 04/04/2021 FINDINGS: Status post ankle joint fusion. Anterior tibial talar bone plate and 3 additional screws are present. There is subchondral lucency noted at the distal tibia and talar dome and along the medial malleolus. Cannot exclude the possibility of underlying osteomyelitis. Please correlate with clinical parameters. There is 5 mm lateral displacement of the distal aspect of the fibula at osteotomy site. Prominent rounded area of heterotopic ossification noted along the lateral aspect of the ankle. IMPRESSION: Status post ankle joint fusion as described above. Subchondral lucencies are present at the distal tibia and talar dome raising the question of underlying osteomyelitis. Dictated by: Patrick Madrid MD 05/08/2021 15:43 Patrick Madrid MD in [place] 05/08/2021 15:43
== END ==
PROVIDERS: PCP Internal Medicine Adolescent Medicine; Visit Provider Podiatrist
DX: Z98.1 Arthrodesis status (principal); M19.071 Primary osteoarthritis, right ankle and foot
CPT/HCPCS: 73610

== ENCOUNTER → 2021-06-12 13:42 | Outpatient (CLI) | payer OTHER, SELFPAY ==
--- NOTE | 2021-06-12 13:51 | XR_ITS ---
FINAL REPORT CLINICAL HISTORY: postop views COMPARISON: May 08, 2021 FINDINGS: RIGHT ANKLE: Three views of the right ankle were obtained. There is fusion of the tibiotalar joint with a screw plate and multiple screws. There is a chronic fracture or postoperative change of the lateral malleolus. There are large dystrophic calcifications adjacent to the medial and lateral malleoli. There are chronic appearing erosions of the medial malleolus and talar dome. IMPRESSION: Postoperative and chronic changes as described. Reviewed, Interpreted and Dictated by Marco Balderas III, MD Transcribed by Shanna Castillo Authenticated by Marco Balderas III, MD on 06/12/2021 03:02:10 PM [facility]
== END ==
LOC: RAD 13:43
PROVIDERS: PCP Internal Medicine Adolescent Medicine; Visit Provider Podiatrist
DX: Z98.1 Arthrodesis status (principal); Z98.890 Other specified postprocedural states; M25.571 Pain in right ankle and joints of right foot
CPT/HCPCS: 73610

== ENCOUNTER 2021-06-19 08:00 | Outpatient (RCR) | payer OTHER, SELFPAY ==
--- NOTE | 2021-06-05 10:09 | HMH.PTOPEV ---
PT Outpatient Evaluation Rehab PT Outpatient Evaluation Start: 06/05/21 08:42 Freq: Status: Active Protocol: Document 06/05/21 08:42 RICHARD (Rec: 06/05/21 10:09 PDESEROUX [id number]) Electronically Signed By Hadley Keene, PT 06/05/21 08:42 Outpatient Therapy Subjective History Subjective History Pt. is a 55 year old male who presents to [facility] Outpatient Physical Therapy Clinic for the initial evaluation this date(06/05/21) w/ c/o subacute and constant post-surgical P!, edema, muscle weakness, TTP, and gait deficits S/P RLE Ankle Arthrodesis on 04/04/21. Pt. reports having this surgery secondary to years of OA. Pt . reports he was NWB and using a scooter since 04/04/21 until 05/28/21. Pt[address] reports Dr Jailyn Castro vocalized 25-50% body weight(BW) weightbearing(WB) into CAM bt. w/ FWW beginning last wk.(05/28/21-06/02/21), and to progress to 50-75% BW this wk.(06/05/21-06/09/21). Pt. reports Dr. Castro's goal is to have pt. 100% WB w/ CAM bt. and FWW when he RTMD next wk.(possibly 06/12/21 per pt. report). Pt. reports Dr. Castro plans to progress pt. to a lace-up ankle brace and tennis shoe when pt. is able to put 100% BW. Pt. reports he is currently not driving at this time, and that he dons his compression sock at all times unless he is sleeping or bathing. Pt. reports symptoms worsen w/ ambulation and putting weight through his foot, reports having symptom relief w/ resting and elevation. 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 report. Current medications
== END 2021-07-30 14:23 | disposition home or self-care (01) ==
LOC: PT.CARL 08:00
PROVIDERS: PCP Internal Medicine Adolescent Medicine; Visit Provider Podiatrist
DX: M25.571 Pain in right ankle and joints of right foot (principal); Z98.1 Arthrodesis status
CPT/HCPCS: 97010; 97014; 97033; 97035; 97110; 97140; 97163; G0283

== ENCOUNTER → 2021-06-21 07:15 | Outpatient (CLI) | payer OTHER, SELFPAY ==
--- NOTE | 2021-06-21 07:16 | CT_ITS ---
FINAL REPORT CLINICAL HISTORY: Pain, Pre-operative planning, hx right ankle fusion FINDINGS: CT RIGHT LOWER EXTREMITY WITHOUT CONTRAST Technique: Axial images through the right lower leg were performed by computed tomography. Sagittal and coronal reconstruction images were performed. This study was performed with techniques to keep radiation doses as low as reasonably achievable (ALARA). Individualized dose reduction techniques using automated exposure control or adjustment of mA and/or kV according to the patient's size were employed. There are moderate hypertrophic changes of the proximal tibial fibular joint. Orthopedic hardware is seen with a sideplate and screws securing the anterior distal tibia in the tibiotalar joint. There is significant narrowing and sclerosis of the mortise with hypertrophic change. There is fragmentation of the medial and the lateral joint margins. IMPRESSION: Extensive fusion hardware involving the anterior distal tibia and mortise with fragmentation and sclerosis as described. Reviewed, Interpreted and Dictated by Dyllan Eden MD Transcribed by Enzo Zurita Authenticated by Dyllan Eden MD on 06/21/2021 10:07:37 AM [facility]
== END ==
LOC: RAD 07:16
PROVIDERS: PCP Internal Medicine Adolescent Medicine; Visit Provider Podiatrist
DX: M19.071 Primary osteoarthritis, right ankle and foot (principal); M19.072 Primary osteoarthritis, left ankle and foot
CPT/HCPCS: 73700

== ENCOUNTER → 2021-07-23 14:27 | Outpatient (CLI) | payer OTHER, SELFPAY ==
--- NOTE | 2021-07-23 14:31 | XR_ITS ---
FINAL REPORT CLINICAL HISTORY: postop views COMPARISON: June 12, 2021 FINDINGS: RIGHT ANKLE Three views of the right ankle were obtained. There are postoperative changes from tibiotalar fusion. A screw plate and screws are again noted. There are severe degenerative changes. There are chronic erosions of the medial malleolus. There is a chronic fracture of the lateral malleolus. There are large soft tissue calcifications laterally. There is soft tissue swelling. IMPRESSION: Overall appearance is visually stable from the previous exam. Reviewed, Interpreted and Dictated by Marco Balderas III, MD Transcribed by Shanna Castillo Authenticated by Marco Balderas III, MD on 07/23/2021 04:38:56 PM [facility]
== END ==
LOC: RAD 14:28
PROVIDERS: PCP Internal Medicine Adolescent Medicine; Visit Provider Podiatrist
DX: M25.571 Pain in right ankle and joints of right foot (principal); Z98.1 Arthrodesis status; G89.18 Other acute postprocedural pain
CPT/HCPCS: 73610

== ENCOUNTER 2021-09-13 08:00 | Outpatient (RCR) | payer OTHER, SELFPAY ==
--- NOTE | 2021-08-14 11:06 | HMH.PTOPEV ---
PT Outpatient Evaluation Rehab PT Outpatient Evaluation Start: 08/14/21 10:36 Freq: Status: Active Protocol: Document 08/14/21 10:36 PDESEROUX (Rec: 08/14/21 11:05 PDESEROUX [id number]) Electronically Signed By Hadley Keene, PT 08/14/21 10:36 Outpatient Therapy Subjective History Subjective History Pt. is a 56 year old male who presents to [facility] Outpatient Physical Therapy Clinic for the S/P second initial evaluation this date( 08/14/21) w/ c/o chronic and constant(but variable) post- surgical P!, soreness, edema, muscle weakness, and ADL deficits S/P RLE Ankle Arthrodesis on 04/04/21. Pt. had his first S/P Physical Therapy initial eval. on 06/05 and attended 4 P.T. sessions post, but was ordered by Dr. Castro to discontinue rehab. at that time for 1 month to allow S/P fusion of the bones in his ankle. Pt. reports having this surgery secondary to years of OA. Pt. reports he was NWB and using a scooter since 03/15 until 05/28/[address]. [address] Castro vocalized 25-50% body weight(BW) weightbearing(WB) into CAM bt. w/ FWW beginning 05/28/21-01/14, and to progress to 50- 75% BW on 06/05/21-06/09/[address]. [address] Castro's goal was to have pt. 100% WB w/ CAM bt. and FWW on 06/12/[address]. Pt[address] Castro plans to progress pt. to a lace-up ankle brace and tennis shoe when pt. is able to put 100% BW. Pt. reports he has currently been ambulating well w/o AD nor boot/brace short distances at home, but donns AD and ankle brace/boot PRN and for longer distances. Pt. reports symptoms worsen w/ ambulation
--- NOTE | 2021-08-14 12:56 | HMH.PTOPEV ---
PT Outpatient Evaluation Rehab PT Outpatient Evaluation Start: 08/14/21 10:36 Freq: Status: Active Protocol: Document 08/14/21 10:36 PDESEROUX (Rec: 08/14/21 11:05 PDESEROUX [id number]) Electronically Signed By Hadley Kenee, PT 08/14/21 10:36 Outpatient Therapy Subjective History Subjective History Pt. is a 56 year old male who presents to [facility] Outpatient Physical Therapy Clinic for the S/P second initial evaluation this date( 08/14/21) w/ c/o chronic and constant(but variable) post- surgical P!, soreness, edema, muscle weakness, and ADL deficits S/P RLE Ankle Arthrodesis on 04/04/21. Pt. had his first S/P Physical Therapy initial eval. on 06/05 and attended 4 P.T. sessions post, but was ordered by Dr. Castro to discontinue rehab. at that time for 1 month to allow S/P fusion of the bones in his ankle. Pt. reports having this surgery secondary to years of OA. Pt. reports he was NWB and using a scooter since 03/15 until 05/28/[address]. [address] Castro vocalized 25-50% body weight(BW) weightbearing(WB) into CAM bt. w/ FWW beginning 05/28/21-01/14, and to progress to 50- 75% BW on 06/05/21-06/09/[address]. [address] Castro's goal was to have pt. 100% WB w/ CAM bt. and FWW on 06/12/[address]. Pt[address] Castro plans to progress pt. to a lace-up ankle brace and tennis shoe when pt. is able to put 100% BW. Pt. reports he has currently been ambulating well w/o AD nor boot/brace short distances at home, but donns AD and ankle brace/boot PRN and for longer distances. Pt. reports symptoms worsen w/ ambulation
== END 2021-10-31 12:59 | disposition home or self-care (01) ==
LOC: PT.CARL 08:00
PROVIDERS: PCP Internal Medicine Adolescent Medicine; Visit Provider Podiatrist
DX: M25.571 Pain in right ankle and joints of right foot (principal); M76.821 Posterior tibial tendinitis, right leg; M96.0 Pseudarthrosis after fusion or arthrodesis; Z98.1 Arthrodesis status
CPT/HCPCS: 97010; 97014; 97110; 97116; 97163; G0283

== ENCOUNTER → 2021-09-17 10:41 | Outpatient (CLI) | payer OTHER, SELFPAY ==
--- NOTE | 2021-09-17 10:46 | MR_ITS ---
FINAL REPORT TECHNIQUE: Pre and postcontrast multi planar MRI images of the right ankle were obtained. CLINICAL HISTORY: right foot/ankle pain, PT tendon pain. HX ANKLE SURGERY [id number] AGO. MEDIAL SIDED ANKLE PAIN. ANKLE PAIN. NO INJURY OR TRAUMA. 30ML PROHANCE GIVEN. COMPARISON: 02/16/2021 FINDINGS: There is been interval postoperative change with extensive hardware, predominantly involving the anterior and distal tibia with fusing of the mortise. Hardware significantly obscures visualization and interpretation. There is abnormal thickening of the Achilles tendon which is new from prior exam. This may be related to chronic partial tear or grafting process. There is partial collapse of the talus with abnormal flattening and sclerosis. However, this is obscured by artifact. There are multiple ossific fragments at the margins of the joint space at the lateral margin measuring up to 2.1 cm in greatest dimension. This may be related to a displaced osteotomy through the distal fibula. IMPRESSION: Interval surgery with apparent fusion of the mortise. Partial collapse of the talar dome. Fusiform thickening of the Achilles tendon which may be related to partial tear or graft. Apparent osteotomy through the distal fibula with large adjacent bony fragments. Reviewed, Interpreted and Dictated by Dyllan Eden MD Transcribed by Emerita Vincent Authenticated by Dyllan Eden MD on 09/17/2021 03:06:06 PM [facility]
[2021-09-17 11:11] LABS: Blood Urea Nitrogen 19 mg/dl (9-20); Estimated Glomerular Filt Rate 69 ml/min (>60); GFR (African American) 84 ML/MIN (>60)
--- NOTE | 2021-09-17 13:38 | XR_ITS ---
FINAL REPORT CLINICAL HISTORY: POSTOP VIEWS-- bone graft -- hardware in ankle COMPARISON: July 23, 2021; this prior exam is incorrectly labeled as the left FINDINGS: RIGHT ANKLE: Three views of the right ankle were obtained. There is a sideplate and screws securing the distal tibia to the talus. There are multiple screws traversing the mortise. The talar dome is flattened and sclerotic. There is osteotomy of the distal fibula. There are prominent bony fragments along the lateral ankle measuring up to 2.6 cm that may be related to prior osteotomy. IMPRESSION: Postoperative changes from fusion of the mortise with sclerosis and collapse of the talar dome. Prior osteotomy of the fibula. Reviewed, Interpreted and Dictated by Dyllan Eden MD Transcribed by Enzo Zurita Authenticated by Dyllan Eden MD on 09/17/2021 04:33:01 PM [facility]
== END ==
PROVIDERS: PCP Internal Medicine Adolescent Medicine; Visit Provider Podiatrist
DX: M25.571 Pain in right ankle and joints of right foot (principal); M76.821 Posterior tibial tendinitis, right leg; Z98.890 Other specified postprocedural states
CPT/HCPCS: 36415; 73610; 73723; 82565; 84520; A9576

== ENCOUNTER → 2022-07-23 14:17 | Outpatient (CLI) | payer OTHER, SELFPAY ==
--- NOTE | 2022-07-23 14:23 | XR_ITS ---
FINAL REPORT CLINICAL HISTORY: ankle pain...s/p ankle surgery COMPARISON: 09/17/2021 FINDINGS: AP, oblique, and lateral views of the right ankle were obtained. There are postoperative changes from tibiotalar fusion. The hardware is unchanged and intact. Again identified is advanced degenerative disease at the tibiotalar joint. There is prominent soft tissue edema. IMPRESSION: Postsurgical changes as detailed above. Reviewed, Interpreted and Dictated by Linda Suazo MD Transcribed by Denise Street Authenticated and [facility]
== END ==
PROVIDERS: PCP Family Medicine; Visit Provider Podiatrist
DX: M19.071 Primary osteoarthritis, right ankle and foot (principal); M25.571 Pain in right ankle and joints of right foot; Z98.1 Arthrodesis status
CPT/HCPCS: 73610

== ENCOUNTER → 2022-08-05 19:23 | Outpatient (CLI) | payer OTHER, SELFPAY ==
[2022-08-05 20:00] LABS: Basophils # 0.1 K/mm3 (0-0.2); Basophils % 1.2 % (0.1-2.0); Chloride 106 mmol/L (98-107); Eosinophils # 0.1 K/mm3 (0.0-0.4); Eosinophils % 1.4 % (0.1-12.0); Hematocrit 49.9 % (42.0-52.0); Hemoglobin 16.7 g/dL (14.1-18.0); Lymphocytes # 1.1 K/mm3 (0.7-4.5); Lymphocytes % 15.8 % (10-50); Mean Corpuscular HGB Conc 33.5 g/dL (31.8-35.4); Mean Corpuscular Hemoglobin 28.5 pg (27.0-31.2); Mean Corpuscular Volume 85.1 fl (80-94); Mean Platelet Volume 10.1 fl (7.4-10.4); Monocytes # 0.3 K/mm3 (0.1-1.0); Monocytes % 4.6 % (1.7-9.3); Neutrophils # 5.3 K/mm3 (1.8-7.8); Neutrophils % 77.1 % (37.0-80.0); Platelet Count 299 K/mm3 (142-424); Potassium 4.3 mmoL/L (3.5-5.1); Red Blood Count 5.87 M/mm3 (4.60-6.20); Red Cell Distribution Width 14.9 % (11.5-17.5); Sodium 139 mmol/L (136-145); White Blood Count 6.9 K/mm3 (4.8-10.8)
[2022-08-05 20:02] LABS: Alanine Aminotransferase 16 U/L (12-78); Aspartate Amino Transferase 23 U/L (17-59); Blood Urea Nitrogen 20 mg/dl (9-20); Estimated Glomerular Filt Rate 63 ml/min (>60); GFR (African American) 76 ML/MIN (>60)
[2022-08-05 20:03] LABS: Albumin/Globulin Ratio 1.6 (1.1-1.8); Alkaline Phosphatase 73 U/L (38-126); Anion Gap 10.3 mEq/L (5-15); Bilirubin,Total 0.8 mg/dl (0.2-1.3); Calcium 9.4 mg/dl (8.4-10.2); Carbon Dioxide 27 mmol/L (22.0-30.0); Globulin 2.5 g/dL (1.3-3.2); Glucose 111 mg/dl (74-100); Total Protein,Serum 6.5 g/dl (6.3-8.2)
[2022-08-05 20:08] LABS: C-Reactive Protein 10.3 mg/L (0-4)
[2022-08-05 21:30] LABS: Erythrocyte Sedimentation Rate 7 mm/hr (0-20)
[2022-08-15 00:03] LABS: 1,25 Dihydroxy Vitamin D 21 pg/mL (.); 1,25-Dihydroxy, Vitamin D-2 <10 pg/mL (.); 1,25-Dihydroxy, Vitamin D-3 19 pg/mL (.)
== END ==
PROVIDERS: PCP Family Medicine; Visit Provider Podiatrist
DX: T84.9XXS Unspecified complication of internal orthopedic prosthetic device, implant and graft, sequela (principal); Z96.9 Presence of functional implant, unspecified; R79.82 Elevated C-reactive protein (CRP); E66.01 Morbid (severe) obesity due to excess calories; Z68.41 Body mass index [BMI] 40.0-44.9, adult
CPT/HCPCS: 80053; 82652; 85025; 85651; 86140

== ENCOUNTER → 2022-08-08 07:15 | Outpatient (CLI) | payer OTHER, SELFPAY ==
--- NOTE | 2022-08-08 07:15 | CT_ITS ---
FINAL REPORT TECHNIQUE: Thin section axial CT images with coronal and sagittal reformats were performed of the right ankle. This study was performed with techniques to keep radiation doses as low as reasonably achievable (ALARA). Individualized dose reduction techniques using automated exposure control or adjustment of mA and/or kV according to the patient''s size were employed. CLINICAL HISTORY: hardware failure, ankle pain COMPARISON: CT dated 03/13/2021 and radiographs dated 07/23/2022 FINDINGS: CT RIGHT ANKLE WITHOUT CONTRAST There is no acute fracture. There are interval postoperative changes from fusion of the tibia and talus. A screw plate and multiple screws are present. There is lack of bony fusion at the tibia and talus. A screw extends from the tibia to the posterior talar dome with lucency adjacent to the screw in the talar dome up to 3 mm in thickness which is worrisome for loosening in this region. There is also a screw which extends from the lateral distal tibia through the mid talar dome with lucency adjacent to the tibial component up to 2 mm in thickness. A screw which extends to the anterior aspect of the talar dome with lucency up to 3 mm in thickness is worrisome for loosening. There is a screw fragment adjacent to the distal aspect of the screw plate measuring up to 5 mm. There are severe degenerative changes. There are chronic calcifications adjacent to the lateral malleolus. IMPRESSION: Postoperative changes from fusion of the tibia and talus with lack of bony fusion. Findings worrisome for loosening of several screws as described. Broken screw at the level of the distal screw plate. Reviewed, Interpreted and Dictated by Marco Balderas III, MD Transcribed by Shanna Castillo Authenticated and [facility]
--- NOTE | 2022-08-08 07:43 | MR_ITS ---
FINAL REPORT CLINICAL HISTORY: Right ankle possible peroneal tear. PRIOR HX ANKLE SURGERY 2020. MEDIAL SIDED ANKLE PAIN. NO INJURY OR TRAUMA COMPARISON: 09/17/2021 FINDINGS: Multiplanar MR imaging of the right ankle was performed without contrast. There is motion artifact on many of the images decreasing sensitivity of this exam. Severe degenerative changes are noted. There are extensive postoperative changes of the tibia and talus causing artifact which obscures much of the detail. This appears similar to the prior study. The bony structures are intact without evidence of fracture, bone bruise or marrow edema. No osteochondral lesion is identified. The ligaments are intact without evidence of injury. There is mild posterior tibial and peroneus longus and brevis tenosynovitis which appears similar to the prior study. There is Achilles tendinitis without evidence of tear. There is partial tear of the peroneus brevis tendon which appears similar to the prior study. There is thickening of the posterior plantar aponeurosis consistent with plantar fasciitis. No significant joint effusion is seen. The musculature is intact. There is no evidence of soft tissue mass or cyst. IMPRESSION: Partial tear peroneus brevis, stable. Mild posterior tibial and peroneus longus and brevis tenosynovitis, similar appearance. Reviewed, Interpreted and Dictated by Marco Balderas III, MD Transcribed by Lolis Andrade Authenticated and [facility]
== END ==
PROVIDERS: PCP Family Medicine; Visit Provider Podiatrist
DX: M19.071 Primary osteoarthritis, right ankle and foot (principal); Z96.9 Presence of functional implant, unspecified; Z98.1 Arthrodesis status; T84.9XXS Unspecified complication of internal orthopedic prosthetic device, implant and graft, sequela
CPT/HCPCS: 73700; 73721

== ENCOUNTER → 2022-08-12 14:48 | Outpatient (CLI) | payer OTHER, SELFPAY ==
--- NOTE | 2022-08-12 14:56 | ECG_ITS ---
APPROVED REPORT Exam: Resting ECG HR:61 bpm ECG Measurements Heart Rate 61 AXES [place] 170 P 42 QRSd 118 QRS 25 QT 392 T 24 QTc 395 Conclusion SINUS RHYTHM WITH SINUS ARRHYTHMIA MODERATE INTRAVENTRICULAR CONDUCTION DELAY [110+ ms QRS DURATION] BORDERLINE ECG UNCONFIRMED REPORT Electronically signed by : Ean Marks MD 08/12/2022 17:33:14
--- NOTE | 2022-08-12 15:01 | XR_ITS ---
FINAL REPORT TECHNIQUE: Chest PA & Lateral CLINICAL HISTORY: pre-op testing, HTN COMPARISON: March 2021 FINDINGS: 2 views of the chest were performed. The heart size is normal. The mediastinum is within normal limits. There is no acute cardiopulmonary process. There are no pleural effusions. There is no pneumothorax. The bony thorax appears intact. IMPRESSION: No acute cardiopulmonary process. Reviewed, Interpreted and Dictated by Dyllan Eden MD Transcribed by Enzo Zurita Authenticated and . [facility]
== END ==
PROVIDERS: PCP Family Medicine; Visit Provider Podiatrist
DX: Z96.9 Presence of functional implant, unspecified (principal); Z98.1 Arthrodesis status
CPT/HCPCS: 71046; 93005

== ENCOUNTER 2022-09-11 16:04 | Observation (INO) | payer OTHER, SELFPAY ==
[2022-09-09 11:19] VITALS: BMI 43.6
[2022-09-11] VITALS (24 sets, daily range): BP systolic 91–126; BP diastolic 52–82; PULSE 57–82; RESP 14–21; TEMP 36.4–43; O2SAT 88–932; BMI 44.3
--- NOTE | 2022-09-11 | XR_ITS ---
FINAL REPORT CLINICAL HISTORY: HARDWARE REMOVAL IN OR FT: 4:46 FINDINGS: FLUOROSCOPY LESS THAN 1 HOUR HISTORY: Fluoroscopy guided injection. FINDINGS: Fluoroscopic guidance was provided for right ankle injection. Five images were obtained. 4.7 minutes of fluoroscopy time were used. IMPRESSION: As above Reviewed, Interpreted and Dictated by Marco Balderas III, MD Transcribed by Lolis Andrade Authenticated and [facility]
[2022-09-11 07:36] LABS: Coronavirus 19, PCR Not Detected (NotDetected); Influenza A, PCR Not Detected (NotDetected); Influenza B, PCR Not Detected (NotDetected)
--- NOTE | 2022-09-11 07:49 | P.PN_ITS ---
[facility] Disclaimer: The information contained in this section may have been updated after the patient was seen, as this information can be updated by other users. Medical History Encounter for pre-operative cardiovascular clearance History of fracture of right ankle History of umbilical hernia Hyperlipidemia Hypertensive disorder Hypertensive heart disease Morbid obesity Obstructive sleep apnea syndrome Primary osteoarthritis, right ankle and foot Surgical History History of hernia repair History of left ankle joint replacement History of right shoulder replacement Hx of resection of rib Family History Father COPD (chronic obstructive pulmonary disease) Social History Smoking Status: Never smoker second hand exposure: No alcohol intake: never substance use type: denies use current occupational status: unemployed Travel in the last 8 weeks: None household members: spouse housing: house current occupation: [employer] current occupational exposures/hazards: No caffeine: No [facility] Anesthesia Checklist Patient Identification Patient Identification: Arm Band and Verbal (Name & ) Structural Data Admitted From: Home Planned Operative Procedure/s: Hardware Removal r ankle/revision ankle nonunion/synovectomy, tendon repair Consent for Planned Operative Procedure(s) Verified: Yes NPO Status Verified Time NPO: 00:00 Additional verifications Anesthesia Reactions: Yes (drowsiness) Hx Blood Transfusions: No Blood Transfusion Reaction: No Airway Assessment C-Spine Mobility Assessed: Yes TMJ Mobility Assessed: Yes Dentition: Good Dentition Neurological Assessment Level of Consciousness: Awake Hx Seizures: No Numbness or tingling in extremities: No Anesthesia Plan Anesthesia Risk discussed: Yes Anesthesia Plan: Verified ASA Class: III Anesthesia Type: General w/block
--- NOTE | 2022-09-11 10:25 | SUR.OPER ---
1010- family updated of pt current status via yasir turcios
--- NOTE | 2022-09-11 11:15 | SUR.OPER ---
1110- family updated of pt current status via jessicarn
--- NOTE | 2022-09-11 11:30 | HMH.PHAINT1 ---
Pharmacy Intervention Comments: MEDICATION RECONCILIATION COMPLETED ON PATIENT USING EXTERNAL FILL HISTORY FROM PHARMACY. -FRANCISCA STEARNS, PEGGYD
--- NOTE | 2022-09-11 12:33 | SUR.OPER ---
1220- family updated of pt current status via yasir ramirez
--- NOTE | 2022-09-11 14:01 | SUR.OPER ---
1355- family updated of pt current status via yasir ramirez
--- NOTE | 2022-09-11 15:09 | P.PNANES_ITS ---
[facility] Anesthesia Record Part I Anesthesia Record I Intake, IV Amount: 1,200 Estimated blood loss (mL): 150 Urine output (mL): 300 Blood Pressure: 117/61 SaO2: 92 Pulse Rate: 74 Respiratory Rate: 20 Temperature: 98 F Patient is:: Drowsy and Oral/Nasal airway Stable to PACU at:: 15:05
--- NOTE | 2022-09-11 15:14 | XR_ITS ---
FINAL REPORT CLINICAL HISTORY: post op right tib fib COMPARISON: Right ankle 07/23/2022 FINDINGS: Two views of the right tibia/fibula were obtained. There has been interval removal of screw plate and multiple screws. There is new tibiotalar fusion with janes and multiple screws. Splint obscures detail. A drain is present anteriorly. IMPRESSION: New tibiotalar fusion with janes and multiple screws. Reviewed, Interpreted and Dictated by Marco Balderas III, MD Transcribed by Lolis Andrade Authenticated and [facility]
[2022-09-11 15:33] LABS: Microscopic,Cath URINE MICROSCOPIC (MICROSCOPIC)
[2022-09-11 15:37] LABS: POC Glucose,Bedside 149 (70-110)
--- NOTE | 2022-09-11 15:56 | EXP.ORTH.CON ---
History of Present Illness *Admission Date: 09/11/22 *Reason for visit:: Post op right ankle *History of present illness: Patient is a 57-year-old male who presents with right ankle pain. He was admitted for 23-hour observation status post right ankle hardware removal and revision to a tibiotalocalcaneal (TTC) arthrodesis. [facility] Disclaimer: The information contained in this section may have been updated after the patient was seen, as this information can be updated by other users. Medical History Encounter for pre-operative cardiovascular clearance History of fracture of right ankle History of umbilical hernia Hyperlipidemia Hypertensive disorder Hypertensive heart disease Morbid obesity Obstructive sleep apnea syndrome Primary osteoarthritis, right ankle and foot Surgical History History of hernia repair History of left ankle joint replacement History of right shoulder replacement Hx of resection of rib Family History Father COPD (chronic obstructive pulmonary disease) Father Social History Smoking Status: Never smoker second hand exposure: No alcohol intake: never substance use type: denies use current occupational status: unemployed Travel in the last 8 weeks: None household members: spouse housing: house current occupation: [employer] current occupational exposures/hazards: No caffeine: No Review of Systems Review of Systems Review of systems:: pertinent systems reviewed and negative unless documented below Constitutional Constitutional: Reports system reviewed and no additional complaints, except as documented Eyes Eyes: Reports system reviewed and no additional complaints, except as documented ENT Ears, Nose, Mouth, and Throat: Reports system reviewed and no additional complaints, except as documented *Cardiovascular Cardiovascular: Reports system reviewed and no additional complaints, except as documented and Reports leg edema *Respiratory Respiratory: Reports system reviewed and no additional complaints, except as documented *Gastrointestinal Gastrointestinal: Reports system reviewed and no additional complaints, except as documented *Genitourinary Genitourinary: Reports system reviewed and no additional complaints, except as documented *Musculoskeletal Musculoskeletal: Reports system reviewed and no additional complaints, except as documented and Reports limited range of motion Integumentary/Breasts Skin/Breast: Reports system reviewed and no additional complaints, except as documented *Neurologic Neurologic: Reports system reviewed and no additional complaints, except as documented Psychiatric Psychiatric: Reports system reviewed and no additional complaints, except as documented Endocrine Endocrine: Reports system reviewed and no additional complaints, except as documented Hematologic/Lymphatic Hematologic/Lymphatic: Reports system reviewed and no additional complaints, except as documented Allergic/Immunologic Allergic/Immunologic: Reports system reviewed and no additional complaints, except as documented Meds Home Medications and Allergies Home Medications Medication Instructions Recorded Confirmed Type gemfibrozil 600 mg tablet 600 mg PO BID Cholesterol 04/04/21 09/11/22 History hydrochlorothiazide 25 mg tablet 25 mg PO DAILY Fluid 04/04/21 09/11/22 History meloxicam 7.5 mg tablet 7.5 mg PO DAILY pain 30 days #30 07/24/22 09/11/22 Rx tabs omeprazole 20 mg capsule,delayed 20 mg PO DAILY Acid reflux 08/19/22 09/11/22 History release amlodipine 10 mg tablet 10 mg PO DAILY Hypertension 09/11/22 09/11/22 History cephalexin 500 mg capsule 500 mg PO Q12H Infection 09/11/22 09/11/22 History cyclobenzaprine 5 mg tablet 5 mg PO TIDP PRN muscle spasm 09/11/22 09/11/22 H
--- NOTE | 2022-09-11 16:16 | PC.NURSE ---
patient arrived by bed to floor from surgery
--- NOTE | 2022-09-11 16:18 | EXP.OP.NOTE ---
Date of procedure: 09/11/22 Pre-op Diagnosis:: Right ankle fusion nonunion Right ankle pain Retained orthopedic hardware Fibula hypertrophy, history of fracture Peroneus brevis partial tear Peroneus longus, posterior tibial tenosynovitis Synovitis, scar tissue Post-op Diagnosis:: Same Procedure performed:: Right tibiotalaocalcaneal arthrodesis Right ankle repair of tibia non-union Right excision of bone spur tibia Partial resection fibula Excision/curettage of tibia bone cyst with allograft (72503), talus/calcaneus (30042) Right peroneal tendon secondary repair Right posterior tibial tendon debridement and repair Right ankle deep hardware removal Right ankle/foot synovectomy Application of amniotic graft, CRESCENCIO drain, posterior splint Surgeon:: Cari Castro DPM Client Relationship Executive(s):: PEPPER Gill LEAD JAVASCRIPT DEVELOPER:: Cha Hector Anesthesia: GETA and regional (Right popliteal, saphenous nerve block) Estimated blood loss (mL): 50 Clinical Note:: Patient is a 57M, non-DM, non-smoker who presents with right ankle pain. Has surgery on 04/04/21: s/p?Right ankle arthrodesis, peroneus brevis debridement and repair, peroneal longus debridement and repair, STJ synovectomy, ankle synovectomy, percutaneus COURTNEY, Excision/removal of fibula fracture, fibula osteotomy, application of graft, application of posterior splint. The patient has since tried modification of shoe gear, taping, strapping, inserts, ice, elevation, and NSAIDs. He has also tried immobilization, ankle bracing, injections and physical therapy. After a long discussion with patient in regards to the conservative versus surgical treatment for the arthritic deformity and fusion nonunion, the patient has elected to proceed with surgery because they have failed conservative treatment and continue to have pain and worsening symptoms affecting daily activities. Will proceed with ankle hardware removal, fusion revision vs TTC arthrodesis. The patient has been instructed on the planned procedure, all risk versus benefits of the procedure discussed.?These include but are not limited to: bleeding, infection, nerve and blood vessel damage, need for further surgery, delay in healing of soft tissue or bone, failure of bones to heal, non-union, mal-union, failure of the implant, prolonged pain and recovery, temporary or permanent nerve symptoms/swelling/pain, CRPS/RSD, DVT/PE and anesthetic complications including . No guarantees were given. All questions fully answered. The patient verbalized understanding and agreed to proceed with surgery. Written consent was obtained. Operative findings:: Right ankle with broken screws noted at the ankle fusion site. The 7.0 cannulated and 6.5mm screws were completely over grown with hypertrophic bone. There was some synovitic fluid noted to the lateral ankle, wound culture was taken. No leesa purulence or malodor noted. The bone at the level of the ankle joint was soft and osteoporotic almost had a Charcot-like appearance. Old fibula fracture noted with hypertrophic bone resected. Degenerative arthritic changes noted to the subtalar joint. Previous peroneus brevis tear appeared to be healed with some tendon hypertrophy which was debrided. The peroneal and posterior tibial tendons had tenosynovitis with no rupture appreciated. Modifier: This case took approximately 90 minutes longer than normal due to the extensive hypertrophic bony overgrowth of the screws, fibrotic scar tissue and patient large body habitus requiring more extensive debridement as well as the revisional nature of the procedure. Operative note:: On this date and time patient was deemed an appropriate surgical candidate. Pre-op regional popliteal nerve block performed by anesthesia. With informed consent signed, the patient was taken to the operating theater. The patient was positioned supine. General anesthesia was induced. Tourniquet was applied to the right thigh @ 250 mmHg. The right lower extremity was prepp
[2022-09-11 16:34] LABS: Appearance,Urine/Cath CLEAR (Clear); Bilirubin,Cath Negative (Negative); Blood, Urine/Cath Negative (Negative); Color,Urine/Cath YELLOW (Yellow); Glucose,Urine/Cath (UA) Negative (Negative); Ketones,Urine/Cath Negative (Negative); Leukocyte Esterase,Cath Negative (Negative); Nitrate,Cath Negative (Negative); Protein,Urine/Cath Negative (Negative); Specific Gravity, Urine/Cath 1.025 (1.005-1.030); Urobilinogen,Cath 0.2 EU/dl (0.2)
--- NOTE | 2022-09-11 16:51 | PC.NURSE ---
REACHED OUT TO ANESTHESIA, Erin GARCIA CRNA @ 1537 IN CONCERNS OF PT'S OXYGEN REQUIREMENTS. AWAITING RESPONSE. 1545 - SPOKE TO Bharath GILLIAM CRNA, MADE AWARE OF PT'S CONDITION. MADE AWARE THAT PT NOW ON 5 L O2 PER NASAL CANNULA W/ SAT 88 - 91%. IS PERFORMED W/ LITTLE SUSTAINED IMPROVEMENT. LUNGS CTA, DENIES BEING SOA. NEW ORDERS FOR PT TO RECEIVE [facility]. Bharath GILLIAM CRNA REACHING OUT TO HOSPITALIST, DR BAY TO SEE PT. 1600 - DR BAY TO BEDSIDE TO ASSESS PT PRIOR TO TRANSPORT TO FLOOR.
--- NOTE | 2022-09-11 17:05 | SUR.PHASEI ---
VERIFIED W/ PT'S THAT THEY DO HAVE A POLAR PAC FOR BEHIND HIS KNEE POST OP FROM PREV SURGERY.
--- NOTE | 2022-09-11 17:10 | EXP.HP ---
History of Present Illness *Admission Date: 09/11/22 *Reason for visit:: right ankle pain, s/p fusion *History of present illness: Mr. Lim is a pleasant 57-year-old male who presented to the hospital today for elective right ankle surgery. Long history of chronic right ankle pain, degeneration and arthritis. Previous fusion and arthrodesis. Unfortunately hardware broke and he has had progressive degeneration necessitating repeat surgery. Past history is difficult for hyper, obesity, chronic, GERD, And MARIE. Taken for surgery today by podiatry. Procedure went well with no complications. Prolonged due to difficulty of removing hardware. After surgery, complaining of some right elbow pain likely due to arm being in extended position for prolonged period of time. Medicine consulted by podiatry for observation admission overnight postsurgery. On evaluation, patient complaining of headache and right elbow pain, otherwise has no leg pain due to nerve block. Still weaning off oxygen postop. Denies chest pain, shortness of breath, nausea, vomiting, confusion. [facility] Disclaimer: The information contained in this section may have been updated after the patient was seen, as this information can be updated by other users. Medical History Encounter for pre-operative cardiovascular clearance History of fracture of right ankle History of umbilical hernia Hyperlipidemia Hypertensive disorder Hypertensive heart disease Morbid obesity Obstructive sleep apnea syndrome Primary osteoarthritis, right ankle and foot Surgical History History of hernia repair History of left ankle joint replacement History of right shoulder replacement Hx of resection of rib Family History Father COPD (chronic obstructive pulmonary disease) Father Social History Smoking Status: Never smoker second hand exposure: No alcohol intake: never substance use type: denies use current occupational status: unemployed Travel in the last 8 weeks: None household members: spouse housing: house current occupation: [employer] current occupational exposures/hazards: No caffeine: No Review of Systems Review of Systems Review of systems (narrative): 14 point review of systems performed, pertinent positives and negatives as per HPI *Neurologic Neurologic: Reports system reviewed and no additional complaints, except as documented Meds Home Medications and Allergies Home Medications Medication Instructions Recorded Confirmed Type gemfibrozil 600 mg tablet 600 mg PO BID Cholesterol 04/04/21 09/11/22 History hydrochlorothiazide 25 mg tablet 25 mg PO DAILY Fluid 04/04/21 09/11/22 History meloxicam 7.5 mg tablet 7.5 mg PO DAILY pain 30 days #30 07/24/22 09/11/22 Rx tabs omeprazole 20 mg capsule,delayed 20 mg PO DAILY Acid reflux 08/19/22 09/11/22 History release amlodipine 10 mg tablet 10 mg PO DAILY Hypertension 09/11/22 09/11/22 History cephalexin 500 mg capsule 500 mg PO Q12H Infection 09/11/22 09/11/22 History cyclobenzaprine 5 mg tablet 5 mg PO TIDP PRN muscle spasm 09/11/22 09/11/22 History enoxaparin 40 mg/0.4 mL 40 mg SQ DAILY DVT PROPHYLAXIS 09/11/22 09/11/22 History subcutaneous syringe (Lovenox) ergocalciferol (vitamin D2) 1,250 50,000 unit PO WEEKLY supplement 09/11/22 09/11/22 History mcg (50,000 unit) capsule gabapentin 100 mg capsule 100 mg PO TIDP PRN nerve pain 09/11/22 09/11/22 History ketorolac 10 mg tablet 10 mg PO Q6HP PRN pain 09/11/22 09/11/22 History lisinopril 40 mg tablet 40 mg PO DAILY Hypertension 09/11/22 09/11/22 History ondansetron 4 mg disintegrating 4 mg PO Q6HP PRN Nausea And 09/11/22 09/11/22 History tablet Vomiting oxycodone-acetaminophen 7.5 mg-325 1 tab PO Q4HP PRN pain 09/11/22 09/11/22 H
[2022-09-11 18:04] LABS: Bacteria,Urine/Cath TRACE /lpf
[2022-09-12] VITALS: BP 110/64; PULSE 78; RESP 18; TEMP 36.7; O2SAT 97
[2022-09-12 04:00] VITALS: BP 96/54; PULSE 87; RESP 18; TEMP 37.1; O2SAT 90; BMI 47.2
[2022-09-12 06:41] LABS: Basophils % 0.3 % (0.1-2.0); Eosinophils % 0.3 % (0.1-12.0); Hematocrit 39.1 % (42.0-52.0); Hemoglobin 12.6 g/dL (14.1-18.0); Lymphocytes # 1.2 K/mm3 (0.7-4.5); Lymphocytes % 12.8 % (10-50); Mean Corpuscular HGB Conc 32.3 g/dL (31.8-35.4); Mean Corpuscular Hemoglobin 28.1 pg (27.0-31.2); Mean Corpuscular Volume 86.9 fl (80-94); Mean Platelet Volume 8.6 fl (7.4-10.4); Monocytes # 0.6 K/mm3 (0.1-1.0); Monocytes % 6.4 % (1.7-9.3); Neutrophils # 7.7 K/mm3 (1.8-7.8); Neutrophils % 80.2 % (37.0-80.0); Platelet Count 281 K/mm3 (142-424); Red Cell Distribution Width 15.1 % (11.5-17.5); White Blood Count 9.6 K/mm3 (4.8-10.8)
--- NOTE | 2022-09-12 06:42 | PC.NURSE ---
NO ACUTE CHANGES SINCE PREVIOUS ASSESSMENT. VSS. LUNG SOUNDS CLEAR. PT C/O PAIN X1 THIS SHIFT. FOOT REMAINS ELEVATED ON A PILLOW. DRESSING REMAINS IN PLACE.
[2022-09-12 06:47] LABS: Chloride 106 mmol/L (98-107); Potassium 3.7 mmoL/L (3.5-5.1); Sodium 136 mmol/L (136-145)
[2022-09-12 06:50] LABS: Alanine Aminotransferase 18 U/L (12-78); Albumin Level 2.8 g/dl (3.5-5.0); Albumin/Globulin Ratio 1.2 (1.1-1.8); Alkaline Phosphatase 53 U/L (38-126); Anion Gap 7.7 mEq/L (5-15); Aspartate Amino Transferase 26 U/L (17-59); Bilirubin,Total 0.5 mg/dl (0.2-1.3); Blood Urea Nitrogen 22 mg/dl (9-20); Carbon Dioxide 26 mmol/L (22.0-30.0); Creatinine Clearance Estimated 80 mL/min (50-200); Estimated Glomerular Filt Rate 63 ml/min (>60); GFR (African American) 76 ML/MIN (>60); Globulin 2.3 g/dL (1.3-3.2); Glucose 116 mg/dl (74-100); Total Protein,Serum 5.1 g/dl (6.3-8.2)
[2022-09-12 07:08] LABS: Hemoglobin A1C 5.2 % (4.0-6.0)
--- NOTE | 2022-09-12 07:50 | EXP.DC.SUM ---
General Admission date:: 09/11/22 Discharge date: 09/12/22 HPI HPI HPI: Mr. Lim is a pleasant 57-year-old male who presented to the hospital today for elective right ankle surgery. Long history of chronic right ankle pain, degeneration and arthritis. Previous fusion and arthrodesis. Unfortunately hardware broke and he has had progressive degeneration necessitating repeat surgery. Past history is difficult for hyper, obesity, chronic, GERD, And MARIE. Taken for surgery today by podiatry. Procedure went well with no complications. Prolonged due to difficulty of removing hardware. After surgery, complaining of some right elbow pain likely due to arm being in extended position for prolonged period of time. Medicine consulted by podiatry for observation admission overnight postsurgery. On evaluation, patient complaining of headache and right elbow pain, otherwise has no leg pain due to nerve block. Still weaning off oxygen postop. Denies chest pain, shortness of breath, nausea, vomiting, confusion. Hospital Course Hospital Course Hospital Course: 57-year-old male who presented for elective surgery of right ankle with hardware removal and TTC fusion.? Medicine consulted by podiatry for admission overnight for observation.? Determination made to admit for Ybarra, pain control, PT eval in the morning.? Discussed case with podiatry.? Patient tolerated procedure well.? Discharge meds have already been sent.? Continue with routine prophylactic antibiotics postop.? 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 Patient taken for surgery for fusion of his right ankle. Tolerated the procedure well. Received nerve block postop with good pain control. Overall did well overnight. Reevaluated in the morning, neurovascularly intact in the foot. Podiatry comfortable with patient going home and following up in 1 week in their clinic as an outpatient. We will pull CRESCENCIO drain at that time. Recommend ice pack to right ankle and elevate as needed. Rx for Percocet, gabapentin and Flexeril given. e-Rx given for Keflex 500mg, Zofran already sent per podiatry. Obstructive sleep apnea -Patient brought home CPAP, continue during admission. Incentive spirometry during hospitalization to decrease risk for pneumonia Hypertension: Continue home regimen GERD: Continue home omeprazole Stable for discharge home. Nonweightbearing on right ankle for 4 to 6 weeks. Follow-up with podiatry in a week. Exam Data for Last 24 hours Vital signs and Labs for Last 24 Hours: Temp Pulse Resp BP Pulse Ox 98.8 F 87 18 96/54 L 90 L 09/12/22 04:00 09/12/22 04:00 09/12/22 04:00 09/12/22 04:00 09/12/22 04:00 Laboratory Results - last 24 hr 09/11/22 07:27: SARS-CoV-2 (PCR) Not detected, Influenza A Untype (PCR) Not detected, Influenza Type B (PCR) Not detected 09/11/22 09:00: Urine Color Yellow, Urine Appearance Clear, Urine pH 6.0, Ur Specific [place] 1.025, Urine Protein Negative, Urine Glucose (UA) Negative, Urine Ketones Negative, Urine Blood Negative, Urine Nitrate Negative, Urine Bilirubin Negative, Urine Urobilinogen 0.2, Ur Leukocyte Esterase Negative, Urine RBC None, Urine WBC 3-5, Urine Bacteria Trace, Hyaline Casts 3-5 09/11/22 15:25: POC Glucose 149 H 09/12/22 06:12: Hemoglobin A1c 5.2 09/12/22 06:12: WBC 9.6, RBC 4.50 L, Hgb 12.6 L, Hct 39.1 L, MCV 86.9, MCH 28.1, MCHC 32.3, RDW 15.1, Plt Count 281, MPV 8.6, Neut % (Auto) 80.2 H, Lymph % (Auto) 12.8, [place] % (Auto) 6.4, Eos % (Auto) 0.3, Baso % (Auto) 0.3, Neut # (Auto) 7.7, Lymph # (Auto) 1.2, [place] # (Auto) 0.6, Eos # (Auto) 0.0, Baso # (Auto) 0.0 09/12/22 06:12: Sodium 136, Potassium 3.7, Chloride 106, Carbon Dioxide 26, Anion Gap 7.7, BUN 22 H, Creatinine 1.20, Estimated Creat Clear 80, Estimated GFR 63, Est GFR (Marci
[2022-09-12 07:59] VITALS: BP 130/58; PULSE 84; RESP 20; TEMP 36.9; O2SAT 95
--- NOTE | 2022-09-12 08:03 | EXP.ORTH.PN ---
Subjective *Date: 09/12/22 *Time: 08:07 Interval history: Patient resting comfortably in bed with CPAP on. Patient reports mild pain and tingling sensation to the right lower extremity consistent with nerve block starting to wear off. He reports pain to the right arm from previous IV site and arm likely hyperextension is improving. He denies any new complaints. Ortho Exam (Inpt) Vital signs and Labs for Last 24 Hours: Temp Pulse Resp BP Pulse Ox 98.5 F 84 20 130/58 L 95 09/12/22 07:59 09/12/22 07:59 09/12/22 07:59 09/12/22 07:59 09/12/22 07:59 Laboratory Results - last 24 hr 09/11/22 09:00: Urine Color Yellow, Urine Appearance Clear, Urine pH 6.0, Ur Specific [place] 1.025, Urine Protein Negative, Urine Glucose (UA) Negative, Urine Ketones Negative, Urine Blood Negative, Urine Nitrate Negative, Urine Bilirubin Negative, Urine Urobilinogen 0.2, Ur Leukocyte Esterase Negative, Urine RBC None, Urine WBC 3-5, Urine Bacteria Trace, Hyaline Casts 3-5 09/11/22 15:25: POC Glucose 149 H 09/12/22 06:12: Hemoglobin A1c 5.2 09/12/22 06:12: WBC 9.6, RBC 4.50 L, Hgb 12.6 L, Hct 39.1 L, MCV 86.9, MCH 28.1, MCHC 32.3, RDW 15.1, Plt Count 281, MPV 8.6, Neut % (Auto) 80.2 H, Lymph % (Auto) 12.8, [place] % (Auto) 6.4, Eos % (Auto) 0.3, Baso % (Auto) 0.3, Neut # (Auto) 7.7, Lymph # (Auto) 1.2, [place] # (Auto) 0.6, Eos # (Auto) 0.0, Baso # (Auto) 0.0 09/12/22 06:12: Sodium 136, Potassium 3.7, Chloride 106, Carbon Dioxide 26, Anion Gap 7.7, BUN 22 H, Creatinine 1.20, Estimated Creat Clear 80, Estimated GFR 63, Est GFR ( Amer) 76, Glucose 116 H, Calcium 8.0 L, Magnesium 2.0, Total Bilirubin 0.5, AST 26, ALT 18, Alkaline Phosphatase 53, Total Protein 5.1 L, Albumin 2.8 L, Globulin 2.3, Albumin/Globulin Ratio 1.2 Temp Pulse Resp BP Pulse Ox 98 F 74 20 117/61 92 L 09/11/22 15:10 09/11/22 15:10 09/11/22 15:10 09/11/22 15:10 09/11/22 15:05 Laboratory Results - last 24 hr 09/11/22 07:27: SARS-CoV-2 (PCR) Not detected, Influenza A Untype (PCR) Not detected, Influenza Type B (PCR) Not detected 09/11/22 15:25: POC Glucose 149 H I & O for Labs for Last 24 Hours: Intake & Output 09/09/22 09/10/22 09/11/22 09/12/22 11:59 11:59 11:59 11:59 Intake Total 1440 / 1440 Output Total 400 / 400 Balance 1040 / 1040 Weight 340 lb 368 lb 1 oz Intake & Output 09/09/22 09/10/22 09/11/22 09/12/22 11:59 11:59 11:59 11:59 Intake Total 1200 / 1200 Balance 1200 / 1200 Weight 340 lb Microbiology Reports for the Last 24 Hours: Microbiology 09/11/22 10:00 Ankle,Right Gram Stain - Final Constitutional: Present no acute distress and morbidly obese Head: Present normocephalic Neck: Present normal inspection Respiratory: Present normal respiratory effort Cardiac: Present posterior tibial pulses present and pedal pulses present GI: Present soft Rectal (male): Present deferred (male): Present deferred Extremities: Present normal inspection, normal capillary refill and edema (RLE) Skin: Present intact Comment:: CRESCENCIO drain intact to RLE, 10 cc bloody output Neuro: Present Motor Function Intact, Sensory Function Intact, oriented x 3, tone normal and moves all extremities Elbow: right: swelling, right: tenderness (bruising to IV stick site) and right: decreased ROM (stiffness) Ankle: right: swelling and right: tenderness (decreased sensation secondary to RLE nerve block) and bilateral: normal inspection Assessment and Plan *Assessment and plan (1) Pain in right ankle and joints of right foot: Status: Acute Category: Medical Code(s): M25.571 - Pain in right ankle and joints of right foot (2) Nonunion after arthrodesis: Status: Acute Category: Medical Code(s): M96.0 - Pseudarthrosis after fusion or arthrodesis (3) Failure of joint fusion: Status: Acute Qualifiers: Encounter type: sequela Qualified Code(s): T84.9XXS - Unspecified complication of
[2022-09-12 08:20] LABS: Vitamin B12 196 pg/mL (239-931)
--- NOTE | 2022-09-12 08:20 | P.PNANES_ITS ---
[facility] Anesthesia Record Part II Anesthesia Record Part II Discharge Time: 16:05 Destination: Medical Surgical Department PACU nurse assessment reviewed?: Yes Patient Condition:: Good Anesthesia Complications:: None Swallowing reflex intact?: Yes Cyanosis?: No Blood Pressure: 119/55 Pulse Rate: 66 Temperature: 98 F Mental Status: Alert & Oriented Pain level:: 6 (right arm) Nausea and/or vomitting:: None Intake, IV Amount: 0
[2022-09-12 08:22] VITALS: BP 119/55; PULSE 66; TEMP 36.6
--- NOTE | 2022-09-12 08:44 | PC.NURSE ---
Ice pack place behind right knee
--- NOTE | 2022-09-12 10:21 | HMH.PTEV ---
Physical Therapy Evaluation Rehab PT IP Evaluation Start: 09/11/22 15:40 Freq: ONCE Status: Active Protocol: Document 09/12/22 10:00 ADAM (Rec: 09/12/22 10:21 PHOALEXIS [id number]) Subjective/History History History 57 yowm adm to [facility] for R ankle reconstruction with prior hardware removal. He reports he lives with spouse, 2-3 steps to enter the home, has a [place] at home and has previously used it to maintain his NWB of the R LE. He is generally independent with all mobility at baseline. Subjective Subjective Pt reports no c/o this am. Agrees to mobility assessment. Rehab PT IP Eval Objective Appearance Patient Behavior Appropriate Patient Orientation Person,Place,Time Difficulty following instructions none Speech Pattern Clear Ambulation Patient Able to Ambulate No Balance Ability to Arise Able, w/o using arms Sitting Balance Steady, safe Standing Balance Steady, wide stance Dynamic Sitting Balance Ability Good Dynamic Standing Balance Ability Good Transfers Bed Transfer Ability Independent Chair Transfer Ability Supervision/Stand by Sit to Stand Bed Transfer Ability Supervision/Stand by Sit to Stand Chair Transfer Ability Supervision/Stand by ROM All Extremities PT ROM Status WFL Abnormal ROM Comment except R ankle NT MMT All Extremities PT MMT WFL Abnormal MMT Grade except R ankle NT Rehab PT IP prob,goals,plan Problems Date of Evaluation: 09/12/22 Discharge Plan PT Discharge Plan Pt is appropriate to return home once medically stable with current AD available to him. Able to maintain NWB of the R LE at this time. G -code Required No Eval Complexity Eval Charge Codes 98008 - Moderate Complexity PHYSICIAN CERTIFICATION: I certify the specified therapy services for Tej Lim are required, authorized, and reviewed every 30 days.
--- NOTE | 2022-09-12 10:33 | SW/DCPLANNER ---
The plan for this patient is to return home with assistance from family. Patient stated that he has all appropriate DME needed at home. Patient will discharge home today.
[2022-09-12 11:23] VITALS: BP 112/54; PULSE 79; RESP 18; TEMP 37.1; O2SAT 94
--- NOTE | 2022-09-12 11:59 | HMH.PHAINT1 ---
Pharmacy Intervention Comments: Counseled patient and spouse to CONTINUE current home medication regimen on discharge. Patient and spouse expressed understanding.
--- NOTE | 2022-09-16 14:38 | CARE MANAGER ---
Spoke with patient regarding recent discharge. Patient stated that he is doing well, no concerns/complaints voiced at time of call.
== END 2022-09-12 13:35 | disposition home or self-care (01) ==
LOC: 2ND 16:05
PROVIDERS: Podiatrist; Admitting Provider Internal Medicine Adolescent Medicine; PCP Family Medicine; Visit Provider Internal Medicine Adolescent Medicine
PROC: (CPT 28715; principal; 2022-09-11 08:45)
DX: M96.0 Pseudarthrosis after fusion or arthrodesis (principal); T84.116A Breakdown (mechanical) of internal fixation device of bone of right lower leg, initial encounter; M85.661 Other cyst of bone, right lower leg; M25.571 Pain in right ankle and joints of right foot; M66.871 Spontaneous rupture of other tendons, right ankle and foot; G47.33 Obstructive sleep apnea (adult) (pediatric); E66.01 Morbid (severe) obesity due to excess calories; T84.84XA Pain due to internal orthopedic prosthetic devices, implants and grafts, initial encounter; I10 Essential (primary) hypertension; Z68.41 Body mass index [BMI] 40.0-44.9, adult; Z79.899 Other long term (current) drug therapy; Y82.8 Other medical devices associated with adverse incidents; E78.5 Hyperlipidemia, unspecified
CPT/HCPCS: 28715; 27659; 27638; 28103; 20680; 36415; 73590; 73600; 76000; 80053; 81001; 82607; 82962; 83036; 83735; 85025; 87070; 87075; 87205; 96374; 97162; C1713; C1734; C1762; C1776; C9803; G0378; J2405; Q4211; U0003; U0005

== ENCOUNTER → 2022-10-01 08:17 | Outpatient (CLI) | payer OTHER, SELFPAY ==
--- NOTE | 2022-10-01 08:20 | XR_ITS ---
FINAL REPORT CLINICAL HISTORY: foot pain, recent ankle surgery. COMPARISON: 09/11/2022 FINDINGS: RIGHT TIBIA/FIBULA 2 views were obtained. There are postoperative changes from arthrodesis of the ankle and subtalar joints. Detail is obscured by plaster cast. Hardware appears stable. There is no significant displacement. IMPRESSION: Stable appearing postoperative changes. Reviewed, Interpreted and Dictated by Rui Weston MD Transcribed by Alaina Kirk Authenticated and [facility]
--- NOTE | 2022-10-01 08:20 | XR_ITS ---
FINAL REPORT CLINICAL HISTORY: foot pain, recent ankle surgery. FINDINGS: RIGHT CALCANEUS 2 views were obtained. There are postoperative changes from arthrodesis of the ankle and subtalar joints. Detail is obscured by plaster cast. Hardware appears stable. There is no significant displacement. IMPRESSION: Stable appearing postoperative changes. Reviewed, Interpreted and Dictated by Rui Weston MD Transcribed by Alaina Kirk Authenticated and [facility]
== END ==
PROVIDERS: PCP Family Medicine; Visit Provider Podiatrist
DX: M25.571 Pain in right ankle and joints of right foot (principal); Z98.890 Other specified postprocedural states
CPT/HCPCS: 73590; 73650

== ENCOUNTER → 2022-10-29 14:02 | Outpatient (CLI) | payer OTHER, SELFPAY ==
--- NOTE | 2022-10-29 14:05 | XR_ITS ---
FINAL REPORT CLINICAL HISTORY: Postoperative. Patient complains of pain in right posterior heel pain. FINDINGS: RIGHT ANKLE Three views were obtained. Again seen are postoperative changes from arthrodesis of the right and subtalar joint. The hardware appears stable. IMPRESSION: Evolving postoperative changes of arthrodesis of the ankle joint and hindfoot. Reviewed, Interpreted and Dictated by Rui Weston MD Transcribed by Alaina Kirk Authenticated and [facility]
== END ==
PROVIDERS: PCP Family Medicine; Visit Provider Podiatrist
DX: Z98.890 Other specified postprocedural states (principal); M25.571 Pain in right ankle and joints of right foot
CPT/HCPCS: 73610

== ENCOUNTER → 2022-11-19 13:50 | Outpatient (CLI) | payer OTHER, SELFPAY ==
--- NOTE | 2022-11-19 13:53 | XR_ITS ---
FINAL REPORT CLINICAL HISTORY: post-op COMPARISON: 10/29/2022 FINDINGS: RIGHT ANKLE: Three views of the right ankle were obtained. There are postoperative changes from the ankle fusion and talocalcaneal joint fusion with an intramedullary janes and multiple screws. The overall appearance of the ankle is stable since the prior postoperative films of October 29. There is residual soft tissue swelling present as well as small lateral soft tissue calcifications. IMPRESSION: Postoperative changes from ankle fusion and talocalcaneal joint fusion unchanged since October 29. Reviewed, Interpreted and Dictated by Marco Balderas III, MD Transcribed by Dominga Howard Authenticated and [facility]
--- NOTE | 2022-11-19 13:53 | XR_ITS ---
FINAL REPORT CLINICAL HISTORY: post-op COMPARISON: 10/29/2022 FINDINGS: Multiple views of the right tibia and fibula: Four views of the right tibia and fibula were obtained and are compared to prior examination of October 29, 2022. The patient is status post ankle fusion and fusion of the talocalcaneal joint. An intramedullary janes remains present bridging the calcaneus and distal tibia. The overall appearance of the ankle and distal tibia is stable since the prior x-ray. There is soft tissue swelling and some small lateral soft tissue calcifications. IMPRESSION: Postop right ankle and talocalcaneal fusions. The appearance is stable since the prior films of October 29. Reviewed, Interpreted and Dictated by Marco Balderas III, MD Transcribed by Dominga Howard Authenticated and [facility]
== END ==
PROVIDERS: PCP Family Medicine; Visit Provider Podiatrist
DX: M79.671 Pain in right foot (principal); M25.571 Pain in right ankle and joints of right foot; Z98.1 Arthrodesis status; Z98.890 Other specified postprocedural states
CPT/HCPCS: 73590; 73610

== ENCOUNTER → 2022-12-04 13:40 | Outpatient (CLI) | payer OTHER, SELFPAY ==
--- NOTE | 2022-12-04 13:41 | CT_ITS ---
FINAL REPORT TECHNIQUE: Thin section axial CT images with coronal and sagittal reformats were performed. This study was performed with techniques to keep radiation doses as low as reasonably achievable (ALARA). Individualized dose reduction techniques using automated exposure control or adjustment of mA and/or kV according to the patient''s size were employed. CLINICAL HISTORY: ankle pain COMPARISON: 08/08/2022 FINDINGS: CT right ankle: Since the prior CT of 08/08/2022 there has been interval removal of the right ankle screw plate and multiple screws. There is a new intramedullary janes which extends through the distal tibia, talus, and calcaneus. There is a lack of bony fusion of the tibiotalar and talocalcaneal joints which was noted on the prior exam. There are numerous subchondral cysts identified as well as osteopenia. There is new callus formation anterior to the tibiotalar joint since the prior surgery. Vascular calcifications are present as well. IMPRESSION: Interval postoperative change from revision of tibiotalar and talocalcaneal fusion with new callus formation noted anteriorly. Reviewed, Interpreted and Dictated by Marco Balderas III, MD Transcribed by Dominga Howard Authenticated and [facility][1]
== END ==
PROVIDERS: PCP Family Medicine; Visit Provider Podiatrist
DX: M25.571 Pain in right ankle and joints of right foot (principal); Z98.1 Arthrodesis status; Z98.890 Other specified postprocedural states
CPT/HCPCS: 73700

== ENCOUNTER → 2023-01-22 06:34 | Outpatient (CLI) | payer OTHER, SELFPAY ==
--- NOTE | 2023-01-22 06:34 | CT_ITS ---
FINAL REPORT CLINICAL HISTORY: Status Post Right Foot Surgery, right foot/ankle pain after surgery 4 months ago COMPARISON: 12/04/2022 FINDINGS: CT RIGHT ANKLE WITHOUT CONTRAST TECHNIQUE: Axial and reformatted were obtained of the right ankle. This study was performed with techniques to keep radiation doses as low as reasonably achievable, (ALARA). Individualized dose reduction techniques using automated exposure control or adjustment of mA and/or kV according to the patient's size were employed. FINDINGS: There is an intramedullary janes securing the distal tibia through the calcaneus. Orthopedic screws are seen in the posterior calcaneus extending into the talus. There are extensive hypertrophic and cystic changes at the mortise. Multiple hardware defects are seen from previously placed and explanted hardware, particularly in the distal tibia and talus. Mild underlying vascular calcifications are concerning for underlying diabetes. Collapsed of the posterior talus is seen on the sagittal images. IMPRESSION: 1. Extensive orthopedic hardware associated with subtalar effusion. 2. Marked hypertrophic changes at the mortise. It is unclear if this is posttraumatic or neuropathic. Findings appear similar to the previous exam. Reviewed, Interpreted and Dictated by Dyllan Eden MD Transcribed by Alaina Kirk Authenticated and [facility]
== END ==
PROVIDERS: PCP Family Medicine; Visit Provider Podiatrist
DX: M25.571 Pain in right ankle and joints of right foot (principal); Z98.890 Other specified postprocedural states
CPT/HCPCS: 73700

== ENCOUNTER → 2023-01-23 23:23 | Outpatient (CLI) | payer OTHER, SELFPAY ==
[2023-01-23 17:12] LABS: Basophils % 0.5 % (0.1-2.0); Eosinophils # 0.1 K/mm3 (0.0-0.4); Eosinophils % 1.1 % (0.1-12.0); Hematocrit 50.8 % (42.0-52.0); Hemoglobin 16.7 g/dL (14.1-18.0); Lymphocytes # 1.2 K/mm3 (0.7-4.5); Lymphocytes % 16.6 % (10-50); Mean Corpuscular HGB Conc 32.9 g/dL (31.8-35.4); Mean Corpuscular Volume 82.1 fl (80-94); Mean Platelet Volume 10.3 fl (7.4-10.4); Monocytes # 0.4 K/mm3 (0.1-1.0); Monocytes % 5.5 % (1.7-9.3); Neutrophils # 5.4 K/mm3 (1.8-7.8); Neutrophils % 76.2 % (37.0-80.0); Platelet Count 298 K/mm3 (142-424); Red Blood Count 6.19 M/mm3 (4.60-6.20); Red Cell Distribution Width 16.3 % (11.5-17.5); White Blood Count 7.1 K/mm3 (4.8-10.8)
[2023-01-23 17:36] LABS: Erythrocyte Sedimentation Rate 3 mm/hr (0-20)
[2023-01-23 18:03] LABS: Chloride 109 mmol/L (98-107); Potassium 4.5 mmoL/L (3.5-5.1); Sodium 142 mmol/L (136-145)
[2023-01-23 18:06] LABS: Alanine Aminotransferase 19 U/L (12-78); Albumin Level 3.8 g/dl (3.5-5.0); Albumin/Globulin Ratio 1.4 (1.1-1.8); Alkaline Phosphatase 99 U/L (38-126); Anion Gap 16.5 mEq/L (5-15); Aspartate Amino Transferase 27 U/L (17-59); Bilirubin,Total 0.8 mg/dl (0.2-1.3); Blood Urea Nitrogen 15 mg/dl (9-20); Carbon Dioxide 21 mmol/L (22.0-30.0); Estimated Glomerular Filt Rate 63 ml/min (>60); GFR (African American) 76 ML/MIN (>60); Globulin 2.7 g/dL (1.3-3.2); Total Protein,Serum 6.5 g/dl (6.3-8.2)
[2023-01-23 18:07] LABS: Calcium 9.9 mg/dl (8.4-10.2); Glucose 107 mg/dl (74-100)
[2023-01-23 18:13] LABS: C-Reactive Protein 14.6 mg/L (0-4)
[2023-01-23 20:40] LABS: Hemoglobin A1C 5.3 % (4.0-6.0)
[2023-01-23 22:06] LABS: Vitamin B12 934 pg/mL (239-931)
== END ==
LOC: LAB.DROPOF 23:25
PROVIDERS: PCP Nurse Practitioner Family; Visit Provider Nurse Practitioner Family
DX: R60.9 Edema, unspecified (principal); R73.09 Other abnormal glucose; R79.82 Elevated C-reactive protein (CRP); R79.89 Other specified abnormal findings of blood chemistry
CPT/HCPCS: 80053; 82607; 83036; 85025; 85651; 86140

== ENCOUNTER 2023-07-14 09:58 | Outpatient (CLI) | payer OTHER, SELFPAY ==
--- NOTE | 2023-07-14 10:06 | ECG_ITS ---
APPROVED REPORT Exam: Resting ECG HR:68 bpm ECG Measurements Heart Rate 68 AXES HI 160 P 34 QRSd 111 QRS 23 QT 411 T -6 QTc 428 Conclusion SINUS RHYTHM WITH SINUS ARRHYTHMIA INCOMPLETE RIGHT BUNDLE BRANCH BLOCK [90+ ms QRS DURATION, TERMINAL R IN V1/V2, 40+ ms S IN I/aVL/V4/V5/V6] BORDERLINE ECG UNCONFIRMED REPORT Electronically signed by : Ean Marks MD 07/15/2023 20:12:04
[2023-07-14 10:32] LABS: Basophils % 0.4 % (0.1-2.0); Eosinophils # 0.1 K/mm3 (0.0-0.4); Eosinophils % 1.1 % (0.1-12.0); Hematocrit 48.4 % (42.0-52.0); Hemoglobin 16.5 g/dL (14.1-18.0); Lymphocytes # 1.4 K/mm3 (0.7-4.5); Lymphocytes % 19.5 % (10-50); Mean Corpuscular HGB Conc 34.1 g/dL (31.8-35.4); Mean Corpuscular Hemoglobin 28.5 pg (27.0-31.2); Mean Corpuscular Volume 83.8 fl (80-94); Mean Platelet Volume 8.9 fl (7.4-10.4); Monocytes # 0.4 K/mm3 (0.1-1.0); Neutrophils # 5.4 K/mm3 (1.8-7.8); Platelet Count 294 K/mm3 (142-424); Red Blood Count 5.77 M/mm3 (4.60-6.20); Red Cell Distribution Width 15.5 % (11.5-17.5); White Blood Count 7.4 K/mm3 (4.8-10.8)
[2023-07-14 11:41] LABS: Chloride 108 mmol/L (98-107); Potassium 4.9 mmoL/L (3.5-5.1); Sodium 138 mmol/L (136-145)
[2023-07-14 11:44] LABS: Alanine Aminotransferase 15 U/L (12-78); Albumin Level 3.7 g/dl (3.5-5.0); Albumin/Globulin Ratio 1.5 (1.1-1.8); Alkaline Phosphatase 72 U/L (38-126); Anion Gap 5.9 mEq/L (5-15); Aspartate Amino Transferase 21 U/L (17-59); Blood Urea Nitrogen 17 mg/dl (9-20); Calcium 9.4 mg/dl (8.4-10.2); Carbon Dioxide 29 mmol/L (22.0-30.0); Estimated Glomerular Filt Rate 52 ml/min (>60); GFR (African American) 63 ML/MIN (>60); Globulin 2.5 g/dL (1.3-3.2); Glucose 113 mg/dl (74-100); Total Protein,Serum 6.2 g/dl (6.3-8.2)
== END 2023-07-14 23:59 ==
LOC: LAB 09:59
PROVIDERS: PCP Family Medicine; Visit Provider Surgery
DX: K80.20 Calculus of gallbladder without cholecystitis without obstruction (principal)
CPT/HCPCS: 36415; 80053; 85025; 93005

== ENCOUNTER 2023-07-21 07:19 | Day surgery (SDC) | payer OTHER, SELFPAY ==
[2023-07-17 12:47] VITALS: BMI 42.3
[2023-07-21] VITALS (10 sets, daily range): BP systolic 100–144; BP diastolic 54–85; PULSE 54–69; RESP 12–18; TEMP 36.1–43; O2SAT 91–97
[2023-07-21] MEDS: LACTATED RINGERS 1000ML 1,000 ML 25 ML IV (07:38)
--- NOTE | 2023-07-21 07:48 | EXP.GEN.HP ---
HPI HPI HPI: Patient is a pleasant 58-year-old male from [place], [place] who presents for cholecystectomy. He was referred by Dr. Dumont for gallbladder. He states that retrospectively about 1-1/2 or 2 years ago he had symptoms consistent with gallbladder attack . Recently over the holiday he had a similar attack. He states that he had eaten meatballs and sausage balls on [place]. He had severe onset of right upper quadrant pain early on 05/19/2023 which required evaluation in the emergency department at [facility]. Blood work essentially unremarkable. He had a CT scan done with IV and oral contrast which revealed no acute abnormality, hypodense lesion in the right lobe of the liver. There were no gallstones seen on CT scan. He had an outpatient gallbladder ultrasound performed at [facility] on 05/22/2023 which revealed findings of hepatomegaly with adherent gallbladder stones versus polyps with gallbladder wall thickening up to 7 mm. These possible adherent polyps measured 8 mm. Of note, I had previously performed umbilical hernia repair on him in 2011 with small sized (4.3 cm) Bard Ventralex mesh. He has had some issues recently requiring multiple ankle/foot surgeries. Certainly patient's symptoms sound consistent with gallbladder disease. Likely has noncalcified gallstones. However, regardless given the potential polyps at this size as well as the significant gallbladder wall thickening symptoms are likely secondary to gallbladder disease and cholecystectomy would be warranted. I discussed that there is no urgency to this and consideration could be given for watchful waiting. However, the patient would like to go ahead and proceed with cholecystectomy. Plan will be to proceed with laparoscopic with possibly open cholecystectomy. I will likely plan for abdominal entry through left subcostal 5 mm given his prior umbilical hernia repair. [facility] Disclaimer: The information contained in this section may have been updated after the patient was seen, as this information can be updated by other users. Medical History Encounter for pre-operative cardiovascular clearance History of fracture of right ankle History of umbilical hernia Hyperlipidemia Hypertensive disorder Hypertensive heart disease Morbid obesity Obstructive sleep apnea syndrome Primary osteoarthritis, right ankle and foot Surgical History History of hernia repair History of left ankle joint replacement History of right shoulder replacement Hx of resection of rib Family History Father COPD (chronic obstructive pulmonary disease) Social History Smoking Status: Never smoker second hand exposure: No alcohol intake: never substance use type: denies use current occupational status: unemployed Travel in the last 8 weeks: None household members: spouse housing: house current occupation: [employer] current occupational exposures/hazards: No caffeine: Yes Meds Home Medications and Allergies Home Medications Medication Instructions Recorded Confirmed Type hydrochlorothiazide 25 mg tablet 25 mg PO DAILY Fluid 04/04/21 06/19/23 History omeprazole 20 mg capsule,delayed 20 mg PO DAILY Acid reflux 08/19/22 06/19/23 History release ergocalciferol (vitamin D2) 1,250 50,000 unit PO WEEKLY supplement 09/11/22 06/19/23 History mcg (50,000 unit) capsule carvedilol 25 mg tablet See Rx Instructions .Route 11/27/22 06/19/23 Rx .COMPLEX #180 tabs gemfibrozil 600 mg tablet See Rx Instructions .Route 11/27/22 06/19/23 Rx .COMPLEX #180 tabs metformin 500 mg tablet,extended 500 mg PO DAILY #30 tabs 04/21/23 06/19/23 Rx release 24 hr amlodipine 10 mg tablet See Rx Instructions .Route 05/27/23 06/19/23 Rx .COMPLEX #90 tabs lisinopril 40 mg tablet See Rx Instructions .Route 05/27/23 06/19/23 Rx .COMPLEX #90 tabs New Prescriptions to Start Prescriptions: Allergies Allergy/AdvReac Type Severity Reaction Status Date / Time No Known Drug Allergies Allergy Unknown Verified 06/19/23 09:32 Exam Data for Last 24 hours I & O for Last 24 hours: Intake & Output 07/18/23 07/19/23 07/20/23 07/21/23 11:59 11:59 11:59 11:59 Weight 330 lb Constitutional Constitutional: no acute distress *Routine HEENT Exam Head: Present normocephalic Eye: Present EOMI and PERRL ENT: Present mucous membranes moist *Routine Neck Exam Neck: Present supple; Absent lymphadenopathy *Routine Respiratory Exam Respiratory: Present CTA bilaterally *Routine Cardiovascular Exam Cardiovascular: Present RRR *Routine Abdominal Exam Abdominal: Present soft and normoactive bowel sounds; Absent tenderness *Routine Rectal Exam Rectal:: deferred *Routine Genitalia Exam Genitalia:: deferred *Routine Extremities Exam Extremities: Absent cyanosis, clubbing or edema *Routine Skin Exam Skin: Present warm; Absent rash *Routine Neurological Exam Neurological: Present alert and oriented X3 Assessment and Plan *Assessment and plan (1) Cholelithiasis: Status: Acute Category: Medical Code(s): K80.20 - Calculus of gallbladder without cholecystitis without obstruction Plan Plan will be to proceed with cholecystectomy. Plan for laparoscopic possibly open cholecystectomy. I explained him the nature and details of the proposed procedure along with the associated risks and expected outcome. He understands and agrees to proceed.
--- NOTE | 2023-07-21 08:19 | P.PNANES_ITS ---
[facility] Disclaimer: The information contained in this section may have been updated after the patient was seen, as this information can be updated by other users. Medical History Encounter for pre-operative cardiovascular clearance History of fracture of right ankle History of umbilical hernia Hyperlipidemia Hypertensive disorder Hypertensive heart disease Morbid obesity Obstructive sleep apnea syndrome Primary osteoarthritis, right ankle and foot Surgical History History of hernia repair History of left ankle joint replacement History of right shoulder replacement Hx of resection of rib Family History Father COPD (chronic obstructive pulmonary disease) Social History Smoking Status: Never smoker second hand exposure: No alcohol intake: never substance use type: denies use current occupational status: unemployed Travel in the last 8 weeks: None household members: spouse housing: house current occupation: [employer] current occupational exposures/hazards: No caffeine: Yes [facility] Anesthesia Checklist Patient Identification Patient Identification: Arm Band Structural Data Admitted From: Home Planned Operative Procedure/s: Laparoscopic Cholecystectomy Consent for Planned Operative Procedure(s) Verified: Yes Verified Documents: Surgical Consent and History and Physical NPO Status Verified Time NPO: 00:00 Additional verifications Anesthesia Reactions: Yes (drowsiness) Hx Blood Transfusions: No Blood Transfusion Reaction: No Airway Assessment Mallampati Score:: Class II C-Spine Mobility Assessed: Yes TMJ Mobility Assessed: Yes Dentition: Good Dentition Neurological Assessment Level of Consciousness: Awake and Alert Anesthesia Plan Anesthesia Risk discussed: Yes Anesthesia Plan: Verified ASA Class: III Anesthesia Type: General
[2023-07-21] MEDS: LIDOCAINE 1% 30ML PF VIAL 30 ML (09:03)
[2023-07-21] MEDS: ROPIVACAINE 0.5% 30ML VIAL 150 MG (09:04)
[2023-07-21] MEDS: CEFAZOLIN SODIUM 2 GM in 0.9 % SODIUM CHLORIDE 100 ML IV (09:05)
--- NOTE | 2023-07-21 10:28 | EXP.OP.NOTE ---
Date of procedure: 07/21/23 Pre-op Diagnosis:: Symptomatic gallstones Post-op Diagnosis:: Same Procedure performed:: Laparoscopic cholecystectomy Surgeon:: Marco Hein MD DESSERT CUP MACHINE FEEDER:: Kenny Irby Anesthesia: GETA Estimated blood loss (mL): 15 Operative findings:: He had a large amount of intra-abdominal visceral adiposity. There was some mild fatty infiltration of the liver. There was fatty infiltration around the gallbladder. He had small gallstone. Cystic duct was prominent. Operative note:: Consent was obtained and patient was taken to the operating room. He was given preoperative intravenous antibiotics. In the operating room he was placed in a supine position. General anesthesia was induced via endotracheal tube. Abdomen was prepped and draped in the standard surgical fashion. Due to the fact that he previously had mesh placed for umbilical hernia 5 mm optical trocar was inserted under laparoscopic guidance in the left subcostal region. CO2 pneumoperitoneum was then achieved to 15 mmHg. Laparoscopic surveillance was carried out. He had a small Ventralex mesh at the umbilicus with no evidence of any recurrent hernia and there were no adhesions. Supraumbilical incision was made and 11 mm optical trocar was inserted. He was positioned in reverse Trendelenburg left side down. A couple 5 mm trocars were inserted in the right upper abdomen. 10 mm trocar was inserted in the epigastrium. Liver was elevated and gallbladder was grasped retracted anteriorly and superiorly. There is large amount of fatty infiltration around the gallbladder. Gallbladder was retracted anterior laterally. Prolonged dissection was carried out the neck of the gallbladder bluntly incising the visceral peritoneum and fatty tissues. Dissection was carried out ultimately identifying the cystic duct and cystic artery and the critical view of safety. Cystic duct was isolated. It was somewhat prominent which may be secondary to fatty infiltration and scar tissue. Gallbladder was isolated, multiply clipped and sharply divided. Cystic artery was carefully coagulated with TAJ ultrasonic robotic jamar and divided. There was some unavoidable spillage of bile during the dissection process the due to the thin-walled gallbladder. This was suctioned free and defects were closed with Endoloops and hemoclips. Gallbladder was dissected free from the liver in a retrograde fashion in its entirety using TAJ ultrasonic harmonic jamar. Gallbladder was placed within an Endo Catch retrieval device and removed from the peritoneal cavity via the umbilical trocar site. Gallbladder fossa and perihepatic space were irrigated and aspirated until clear. Trocars were removed. Fascia at the supraumbilical incision was closed with multiple interrupted 0 Vicryl sutures. Local anesthetic was infiltrated. Skin incisions were closed with 4-0 Monocryl in a subcuticular fashion. Steri-Strips and dressings were applied. Condition: stable Disposition: PACU Complications:: None immediately apparent
--- NOTE | 2023-07-21 10:36 | EXP.ANES.I ---
[facility] Anesthesia Record Part I Anesthesia Record I Intake, IV Amount: 2,000 Hydration: Adequate Estimated blood loss (mL): 10 Urine output (mL): 0 Blood Pressure: 144/81 SaO2: 93 Pulse Rate: 68 Airway Patency: Patent Respiratory Rate: 12 Temperature: 97.5 F Patient is:: Drowsy and Stable Stable to PACU at:: 10:38
--- NOTE | 2023-07-22 07:17 | P.PNANES_ITS ---
[facility] Anesthesia Record Part II Anesthesia Record Part II Discharge Time: 11:06 Destination: Surgical Day Care (OP Surgery) PACU nurse assessment reviewed?: Yes Patient Condition:: Good Anesthesia Complications:: None Swallowing reflex intact?: Yes Airway Patency: Patent Cyanosis?: No Blood Pressure: 119/62 SaO2: 95 Respiratory Rate: 17 Pulse Rate: 56 Temperature: 97.5 F Mental Status: Alert & Oriented Pain level:: 0 Nausea and/or vomitting:: None Intake, IV Amount: 0 Hydration: Adequate
[2023-07-22 07:31] VITALS: BP 119/62; PULSE 56; RESP 17; TEMP 36.4; O2SAT 95
== END 2023-07-21 11:35 | disposition home or self-care (01) ==
PROVIDERS: PCP Family Medicine; Visit Provider Surgery
PROC: 0FT44ZZ Resection of Gallbladder, Percutaneous Endoscopic Approach (ICD-10-PCS; CPT 47562; principal; 2023-07-21 08:45)
DX: K80.10 Calculus of gallbladder with chronic cholecystitis without obstruction (principal)
CPT/HCPCS: 47562; 96374; J2405; J2710

== ENCOUNTER 2025-02-21 09:11 | Outpatient (CLI) | payer MEDICARE, SELFPAY ==
[2025-02-21 23:02] LABS: Hematocrit 48.5 % (42.0-52.0); Hemoglobin 15.3 g/dL (14.1-18.0); Immature Granulocytes % 0.5 %; Mean Corpuscular HGB Conc 31.5 g/dL (31.8-35.4); Mean Corpuscular Hemoglobin 27.1 pg (27.0-31.2); Mean Corpuscular Volume 85.8 fl (80-94); Nucleated Red Blood Cells % 0 %; Platelet Count 281 K/mm3 (142-424); Red Blood Count 5.65 M/mm3 (4.60-6.20); Red Cell Distribution Width-SD 47.0 fL; White Blood Count 6.4 K/mm3 (4.8-10.8)
[2025-02-22 00:05] LABS: Hepatitis C Ab Qual. W/ RFX NEGATIVE (Negative)
[2025-02-22 01:23] LABS: Alanine Aminotransferase 10 U/L (12-78); Albumin Level 3.7 g/dl (3.5-5.0); Albumin/Globulin Ratio 1.5 (1.1-1.8); Alkaline Phosphatase 63 U/L (38-126); Anion Gap 17.5 mEq/L (5-15); Aspartate Amino Transferase 20 U/L (17-59); Bilirubin,Total 0.6 mg/dl (0.2-1.3); Blood Urea Nitrogen 18 mg/dl (9-20); Calcium 9.4 mg/dl (8.4-10.2); Carbon Dioxide 15 mmol/L (22.0-30.0); Chloride 113 mmol/L (98-107); Cholesterol 134 mg/dl (140-200); Creatinine,Serum 1.00 mg/dl (0.66-1.25); Estimated Glomerular Filt Rate 77 ml/min (>60); GFR (African American) 93 ML/MIN (>60); Globulin 2.4 g/dL (1.3-3.2); Glucose 96 mg/dl (74-100); HDL Cholesterol 29 mg/dl (40-60); Potassium 5.5 mmoL/L (3.5-5.1); Sodium 140 mmol/L (136-145); Total Protein,Serum 6.1 g/dl (6.3-8.2); Triglycerides 77 mg/dl (30-150)
[2025-02-22 02:00] LABS: Thyroid Stimulating Hormone 2.16 uIU/mL (0.465-4.68)
--- OUTSIDE RECORDS SUMMARY | 2025-02-22 10:07 | XMS_ITS | Clinical Summary ---
[facility] Address [address] [place] [address] Care Team Providers Care [employer] Vault Supervisor Name Role Phone Dann Dumont MD Primary Care Provider [phone] Social History Tobacco Use Types Packs/Day Years Used Date Smoking Tobacco: Never Assessed Abuse Screen Answer Date Recorded Unsafe at Home or Work/School Not on file Feels Threatened by Someone? Not on file 01/2023 Does Anyone Keep You from Co ntacting Others or Doint Things Outside the Home? Not on file 03/03/2023 Physical Sign of Abuse Present Not on file 1 Housing Stability Answer Date Recorded Current Living Arrangements Not on file 01/2023 Potentially Unsafe Housing Conditions Not on nemesio e 03/03/2023 Family and Community Support Answer Darian e Recorded Help with Day-to-Day Activities Not on file 03/03/2023 Lonely or Isolated Not on file 03/03/2023 Employment Answer Date Recorded Do you want help finding or keeping work or a steven b? Not on file 03/03/2023 Disabilities Answer Date Recorded Concentrating, Remembering, or Making Decisions Difficulty Not on file 03/03/2023 Doing Errands Independently Difficulty Not on fi le 03/03/2023 Education Answer Date Recorded Help with school or training? Not on file Preferred Language Not on file 03/03/2023 Sex and Gender Information Value Date Recorded Sex Assigned at Not on file Legal Sex Male 11:12 AM EDT Gender Identity Not on file Sexual Orientation Not on file Plan of Treatment Health Maintenance Due Date Last Done Comments ANNUAL PHYSICAL 1966 HEPATITIS C SCREENING 1966 TDAP/TD VACCINES (1 - Tdap) 1985 COLOGUARD 2011 COLON CANCER SCREENING 5 YEAR SIGMOIDOSCOPY 2011 COLONOSCOPY 2011 [address] CANCER SCREENING 2011 CT COLONOGRAPHY 2011 FECAL OCCULT BLOOD TEST 2011 FIT Testing (1 year) 2011 Pneumococcal Vaccine 50+ (1 of 1 - PCV) 2016 ZOSTER VACCINE (1 of 2) 2016 INFLUENZA VACCINE 12/24/2024 Insurance Care Teams Securities Vault Supervisor Relationship Specialty Start Date End Date Dann Dumont MD [address] [place] [address] [place] [id number] PCP - General Family Medicine 05/01/23
--- OUTSIDE RECORDS SUMMARY | 2025-02-22 10:07 | XMS_ITS | Clinical Summary ---
Author Organization [facility] Address [address] [place], [place] [id number] Care Team Providers Care Digital Marketing Program Manager Name Role Phone Graciela De Los Santos APRN Primary Care Provider [phone] Social History Tobacco Use Types Packs/Day Years Used Date Smoking Tobacco: Never Assessed Sex and Gender Information Value Date Recorded Sex Assigned at Not on file Legal Sex Male 7:56 PM EDT Gender Identity Not on file Sexual Orientation Not on file Plan of Treatment Health Maintenance Due Date Last Done Comments [facility]-Depression Screening 1966 [facility]-Infant/Child/Adol SDOH Screenings 1966 [facility]- SDOH Screenings 1984 [facility]-Adult SDOH Screenings 1984 [facility]-DTaP,Tdap,and Td Vaccine s (1 - Tdap) 1985 [facility]-Hepatitis B Vaccines (1 of 3 - 19+ 3-dose series) 1985 CT Colonography 2011 Colonoscopy 2011 FIT-DNA 2011 FIT 2011 FOBT 2011 Sigmoidoscopy 2011 [facility]-Colorectal Cancer Screening 2011 [facility]-Pneumococcal Vaccine: 50 + Years (1 of 1 - PCV) 2016 [facility]-Zoster Vaccines (1 of 2) 2016 [id number] Vaccine (3 - 2024- season) 2025 08/17/2020, 07/20/2020 [facility]-Influenza Vaccine (#1) 2025 HPV Vaccines Aged Out No longer eligi ble based on patient's age to complete this topic [facility]-HIB Vaccines Aged Out No longer e ligible based on patient's age to complete this topic [facility]-Hepatitis A Vaccines Aged Out No longer eligible based on patient's age to complete this topic [facility]-IPV Vaccines Aged Out No longer e ligible based on patient's age to complete this topic [facility]-Rotavirus Vaccines Aged Out No lo nger eligible based on patient's age to complete this topic Insurance [employer] Care Teams Digital Marketing Program Manager Relationship Specialty Start Date End Date Graciela De Los Santos APRN [address] [place] [address] PCP - General 10/06/20
== END 2025-02-21 23:59 | disposition home or self-care (01) ==
LOC: LAB.DROPOF 02-22 10:01
PROVIDERS: PCP Family Medicine; Visit Provider Family Medicine
DX: R10.9 Unspecified abdominal pain (principal); I10 Essential (primary) hypertension; Z11.59 Encounter for screening for other viral diseases; R35.1 Nocturia; Z11.4 Encounter for screening for human immunodeficiency virus [HIV]; E78.5 Hyperlipidemia, unspecified
CPT/HCPCS: 80053; 80061; 84443; 85025; 86803; 87340; 87389; G0103